=== PATIENT | female | born 1955 | race Caucasian/White ===

== ENCOUNTER 2019-08-12 14:35 | Outpatient (RCR) | payer MEDICARE, SELFPAY | END 2019-08-29 23:59 | disposition home or self-care (01) | LOC: SPT 14:35 | PROVIDERS: Family Provider Family Medicine; PCP Family Medicine; Referring Provider Specialist; Visit Provider Specialist | DX: R42 Dizziness and giddiness (principal) | CPT/HCPCS: 95992; 97162 ==

== ENCOUNTER → 2019-08-26 13:18 | Outpatient (BNVA) | payer MEDICARE, SELFPAY | PROVIDERS: Family Provider Family Medicine; PCP Family Medicine; Visit Provider Family Medicine | DX: I10 Essential (primary) hypertension (principal); E03.9 Hypothyroidism, unspecified; J43.1 Panlobular emphysema; L91.8 Other hypertrophic disorders of the skin | CPT/HCPCS: 80053; 80061; 82044; 84443; 85025 ==

== ENCOUNTER 2019-08-30 06:00 | Outpatient (RCR) | payer MEDICARE, SELFPAY | END 2019-09-27 23:59 | disposition home or self-care (01) | LOC: SPT 06:00 | PROVIDERS: Family Provider Family Medicine; PCP Family Medicine; Referring Provider Specialist; Visit Provider Specialist | DX: Z01.89 Encounter for other specified special examinations (principal) ==

== ENCOUNTER → 2020-02-27 11:43 | Outpatient (BNVA) | payer MEDICARE, SELFPAY | PROVIDERS: Family Provider Family Medicine; PCP Family Medicine; Visit Provider Family Medicine | DX: E03.9 Hypothyroidism, unspecified (principal); I10 Essential (primary) hypertension | CPT/HCPCS: 80053; 84443 ==

== ENCOUNTER 2020-05-25 14:11 | Outpatient (CLI) | payer MEDICARE, SELFPAY ==
--- NOTE | 2020-05-25 14:30 | MM_ITS ---
WS: [id number] SCREENING DIGITAL MAMMOGRAM WITH CAD HISTORY: screening mammogram COMPARISON: 04/28/2019 and 04/26/2018 Bilateral CC and MLO views submitted. Computer aided detection analyzed. Breast composition: There are scattered areas of fibroglandular density. There is a new cluster of ca lcifications in the LEFT breast at a middle depth just medial to the nipple line at 9:00. Some of the se calcifications are within a linear distribution. MM/[place] [id number] IMPRESSION: BI-RADS: 0-Incomplete: Need additional imaging evaluation FOLLOW UP: Need Additional Imaging LEFT BREAST: Magnification views of suspicious calcification CC and MLO. Abhay Dubon
== END 2020-05-25 14:12 | disposition home or self-care (01) ==
LOC: RADSHAW 14:15
PROVIDERS: PCP Family Medicine; Visit Provider Family Medicine
DX: Z12.31 Encounter for screening mammogram for malignant neoplasm of breast (principal); R92.1 Mammographic calcification found on diagnostic imaging of breast
CPT/HCPCS: 77067

== ENCOUNTER 2020-06-09 10:33 | Outpatient (CLI) | payer MEDICARE, SELFPAY ==
--- NOTE | 2020-06-09 11:00 | MM_ITS ---
WS: [id number] Left breast diagnostic digital mammogram, 06/09/2020 Clinical Data: suspicious calcifications Comparison: 05/25/2020, 04/28/2019, 04/26/2018, 03/28/2017, 11/03/2014, 01/16/2011, 09/22/2009, 03/04/2009, 01/30/2008, 05/06/2007. Findings: The compression CC and MLO views in the ML view of the left breast show an area of small calcificatio ns. There is no associated mass. These calcifications were not present on older mammograms. There are no secondary signs of carcinoma. MM/[place] [id number] Impression: 1. Suspicious calcifications in left breast at 9:00 position. 2. Recommend left breast ultrasound. BIRADS: 4-Suspicious Finding-Biopsy Should Be Considered FOLLOW UP: See Report The CAD abstract checker was used.
--- NOTE | 2020-06-09 11:30 | US_ITS ---
WS: [id number] Left breast ultrasound, 06/09/2020 Clinical Data: abnormal mammogram, left breast Comparison: None. Findings: Images of the left breast 5 cm from the nipple at the 9:00 position revealed no masses. There are no cysts. There was no acoustic shadowing. US/US breast LT limited* [id number] Impression: 1. Negative left breast ultrasound. 2. Suggest biopsy of new calcifications. BIRADS: 4-Suspicious Finding-Biopsy Should Be Considered FOLLOW UP: See Report
== END 2020-06-09 10:34 | disposition home or self-care (01) ==
LOC: RADSHAW 10:36
PROVIDERS: PCP Family Medicine; Visit Provider Family Medicine
DX: R92.1 Mammographic calcification found on diagnostic imaging of breast (principal)
CPT/HCPCS: 76642; 77065

== ENCOUNTER → 2020-06-16 15:44 | Outpatient (BNVA) | payer MEDICARE, SELFPAY | PROVIDERS: PCP Family Medicine; Visit Provider Family Medicine | DX: Z20.828 Contact with and (suspected) exposure to other viral communicable diseases (principal); R50.9 Fever, unspecified | CPT/HCPCS: 87635 ==

== ENCOUNTER 2020-07-15 11:30 | Outpatient (CLI) | payer MEDICARE, SELFPAY ==
--- NOTE | 2020-07-15 11:40 | MM_ITS ---
WS: [id number] STEREOTACTIC LEFT BREAST BIOPSY WITH VACUUM ASSISTANCE HISTORY: abnormal mammo. COMPARISON: 06/09/2020, 04/28/2019 Procedure, risks and complications were explained to the patient. Medications and prior radiographs a re reviewed. LEFT breast calcifications are located. There is a linear area of calcification extending over severa l centimeters. The more anterior in the more posterior aspect will be biopsied to ensure adequate scot pling. This is the same contiguous collection of calcifications along a duct. Calcifications are targ eted in the craniocaudal projection. The skin is cleansed with ChloraPrep and anesthetized with 1% bu ffered lidocaine. Deeper soft tissues anesthetized with a combination of lidocaine and epinephrine. S mall dermatome is made. Needle advanced into the breast. Stereotactic imaging reveals appropriate pos itioning adjacent calcifications. Multiple vacuum-assisted core biopsies are obtained. No complicatio ns were encountered. Dictated biopsies are performed of the anterior and posterior calcifications. No complications. There are calcifications in each biopsy. Post biopsy specimen radiograph reveals numerous calcifications. Biopsy clip is placed in each biopsy cavity. Post imaging reveals good placement of the clips. No april ration. Pressures held for approximately 15 minutes. No bleeding. Dressing applied. Patient discharged with n o complications. There is no bleeding. With any questions or complications patient is to return. MM/[place] [id number] IMPRESSION: 1. Uncomplicated LEFT breast stereotactic biopsy. Biopsy along the anterior an d posterior distribution of the calcifications at 9:00. 2. Specimen contains numerous calcifications. Pathology: Specimen A, posterior calcifications. 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 RECOMMENDATION: Surgical and oncologic follow-up. Pathology: Specimen B, anterior calcifications. Single focus of ductal carcino ma in situ. High nuclear grade with central comedo-type necrosis. Surrounding b reast tissue with atypical intraductal hyperplasia. RECOMMENDATION: Surgical and oncologic follow-up.
[2020-07-15 12:18] LABS: INR 0.97 (0.8-1.2)
--- NOTE | 2020-07-15 13:00 | MM_ITS ---
WS: [id number] STEREOTACTIC LEFT BREAST BIOPSY WITH VACUUM ASSISTANCE HISTORY: abnormal mammo. COMPARISON: 06/09/2020, 04/28/2019 Procedure, risks and complications were explained to the patient. Medications and prior radiographs a re reviewed. LEFT breast calcifications are located. There is a linear area of calcification extending over severa l centimeters. The more anterior in the more posterior aspect will be biopsied to ensure adequate scot pling. This is the same contiguous collection of calcifications along a duct. Calcifications are targ eted in the craniocaudal projection. The skin is cleansed with ChloraPrep and anesthetized with 1% bu ffered lidocaine. Deeper soft tissues anesthetized with a combination of lidocaine and epinephrine. S mall dermatome is made. Needle advanced into the breast. Stereotactic imaging reveals appropriate pos itioning adjacent calcifications. Multiple vacuum-assisted core biopsies are obtained. No complicatio ns were encountered. Dictated biopsies are performed of the anterior and posterior calcifications. No complications. There are calcifications in each biopsy. Post biopsy specimen radiograph reveals numerous calcifications. Biopsy clip is placed in each biopsy cavity. Post imaging reveals good placement of the clips. No april ration. Pressures held for approximately 15 minutes. No bleeding. Dressing applied. Patient discharged with n o complications. There is no bleeding. With any questions or complications patient is to return. MM/MM biopsy [place] vac assist [id number] IMPRESSION: 1. Uncomplicated LEFT breast stereotactic biopsy. Biopsy along the anterior an d posterior distribution of the calcifications at 9:00. 2. Specimen contains numerous calcifications. Pathology: Specimen A, posterior calcifications. 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 RECOMMENDATION: Surgical and oncologic follow-up. Pathology: Specimen B, anterior calcifications. Single focus of ductal carcino ma in situ. High nuclear grade with central comedo-type necrosis. Surrounding b reast tissue with atypical intraductal hyperplasia. RECOMMENDATION: Surgical and oncologic follow-up.
[2020-07-28 09:34] LABS: Miscellaneous Test See Scanned Lab Rpt
== END 2020-07-15 11:31 | disposition home or self-care (01) ==
LOC: RADSHAW 11:33
PROVIDERS: PCP Family Medicine; Visit Provider Family Medicine
DX: R92.8 Other abnormal and inconclusive findings on diagnostic imaging of breast (principal); Z01.818 Encounter for other preprocedural examination; D05.12 Intraductal carcinoma in situ of left breast; R92.1 Mammographic calcification found on diagnostic imaging of breast
CPT/HCPCS: 19081; 19082; 77065; 85610; 88305; 88361; 88374

== ENCOUNTER 2020-07-28 09:19 | Outpatient (CLI) | payer MEDICARE, SELFPAY ==
--- NOTE | 2020-07-28 14:38 | ONC CON_ITS ---
Dr. Wagner New Patient Note Patient: Kerri Menchaca Unit #: [id number]: [id number] Dicatated By: Drake Wagner M.D.Date of Visit: Jul 28, 2020 Onc MED New Patient/Consult Referring Physician: Dr. GLORIA VERMA D.O. History of Present Illness: Ms. Kerri Menchaca, is a 64-year-old female with history of fibrocystic disease, underwent bilateral lumpectomy when she was in 20s and prior to that when she was [id number], she underwent benign tumor removal from her left breast. As per patient her routine yearly mammogram done on May 25, 2020 showed new cluster of calcifications in the left breast just medial to the nipple line at 9 o'clock position, subsequently underwent left breast digital mammogram on June 09, 2020 which confirmed suspicious calcification in the left breast at 9 o'clock position, subsequently she developed fever and generalized weakness and fatigue underwent Covid 19 testing which came back positive, as per patient her symptoms and condition improved just with supportive care. On July 15, 2020 she underwent stereotactic left breast biopsy and final pathology report came back ductal carcinoma site to with a focus of microinvasive carcinoma which was less than a millimeter in the greatest dimension and is present on the edge of the resection. Patient denies any nipple discharge, denies any overlying skin changes denies any left axillary lymphadenopathy, denies any bony pains, denies any new left breast mass but she has, as per patient lumpy breasts. Denies any new bony pains denies any weight loss, denies any fever chills denies any melena or hematochezia, patient is a former smoker quit smoking in 2002. Past Medical History: Ms. Menchaca's medical history consists of anxiety, bipolar disorder, chronic obstructive pulmonary disease, gastroesophageal reflux disease, hypertension, hypothyroidism, obstructive sleep apnea, and post traumatic stress disorder. Past Surgical History: Ms. Molina surgical/procedural history consists of ankle repair, appendectomy, breast biopsy, cholecystectomy, hysterectomy, shoulder surgery, subtotal thyroidectomy, and tonsillectomy. Medications: Abilify 1 Tablet (of 15 mg) Oral daily, B Complex 1 Tablet Oral daily, buPROPion HCl ER (XL) 1 Tablet (of 300 mg) Tablet SR 24 HR Oral daily, [facility] Fish Oil 1 Capsule (of 1200 mg) Oral daily, Daily Multiple Vitamins 1 Tablet Oral daily, DULoxetine HCl 2 Capsule (of 60 mg) Capsule Delayed Release Particles Oral daily, lamoTRIgine 1 Tablet (of 200 mg) Oral daily, Levothyroxine Sodium 1 Tablet (of 100 mcg) Oral daily, Losartan Potassium 1 Tablet (of 25 mg) Oral daily, Omeprazole 1 Tablet (of 20 mg) Tablet, enteric coated Oral daily, Symbicort 2 Puff(s) (of 80-4.5 mcg/act) Aerosol Inhalation daily Allergies: Codeine Sulfate and iodine. Social History: Ms. Menchaca is . Ms. Menchaca no longer smokes. She is a former drinker. Family History: There is no documented family history. Review Of Symptoms: Constitutional - Appetite is good and weight is stable. No fever, night sweats, or hot flashes. Energy level is fair, ENMT - No sinus congestion/drainage. No mouth sores. No sore throat or difficulty swallowing, Hematologic/Lymphatic - No abnormal bruising or bleeding, Respiratory - Positive for shortness of breath. No cough. No pleuritic pain or hemoptysis, Cardiovascular - No angina pain. No palpitations, Gastrointestinal - No nausea or vomiting. No heartburn or acid reflux. No diarrhea or constipation. No blood in the stool or black stools, Genitourinary (F) - No dysuria or hematuria. No urinary frequency. No urgency or incontinence, Musculoskeletal - No joint or bone pain, Neurologic - No headache or dizziness. No numbness or tingling. No other focal neurologic symptoms, Psychiatric - Positive for anxiety, no depression. No insomnia. Pt is currently being treated for anxiety. Vital Signs: Performed on Jul 28, 2020 10:47: 0, 37.83 (HIGH), 2.04 sq.m, 64 in, 96 %, 79 /min, 16 /min, 168/80 mm(hg) (HIGH), 98.6 F, and 220.4 lbs (HIGH). Performance Status: 0 - Fully active, able to carry on all predisease activities without restrictions. (ECOG) Physical Examination: ENMT - denies any mouth sores or thrush or jaundice, Respiratory - Denies any shortness of breath or wheezing, Cardiovascular - Denies any tachycardia or palpitation, Abdomen - Denies any abdominal pain or fullness, Extremities - No visible edema or rash. Lab/Imaging: Most recent lab results are not available for this patient. Impression: Ductal carcinoma in situ with microinvasive carcinoma which was seen on the edge of the section, but stereotactic left breast biopsy done on July 15, 2020 Prognostic profiling showed ER 99% NH 99% positive, HER-2/fausto negative History of bilateral breast lumpectomy when she was in her 20s and history of left breast benign tumor removal at age 16 Plan: Discussed with patient regarding her disease status and left breast biopsy report, patient is already scheduled see Dr. Medina in 1 week for further surgical evaluation, , Patient will discuss with him regarding surgical options including lumpectomy followed by radiation therapy versus simple mastectomy, we will see her back after surgery , for further evaluation and discussion regarding treatment options. As if it shows DCIS only, then will consider hormonal therapy for 5 years or if it shows invasive tumor, then will consider Oncotype DX Signed By: Drake Wagner M.D. <<Signature on File>>
== END 2020-07-28 09:20 | disposition home or self-care (01) ==
LOC: ONCMED 09:21
PROVIDERS: PCP Family Medicine; Visit Provider Internal Medicine Hematology & Oncology
DX: C50.812 Malignant neoplasm of overlapping sites of left female breast (principal); Z17.0 Estrogen receptor positive status [ER+]
CPT/HCPCS: 99203

== ENCOUNTER 2020-08-17 07:04 | Day surgery (SDC) | payer MEDICARE, SELFPAY ==
[2020-08-16 15:38] VITALS: BMI 37.8
[2020-08-17] VITALS (10 sets, daily range): BP systolic 125–142; BP diastolic 77–89; PULSE 72–91; RESP 12–20; TEMP 36.3–36.7; O2SAT 93–99
--- NOTE | 2020-08-17 07:27 | MM_ITS ---
WS: [id number] STEREOTACTIC LEFT BREAST NEEDLE LOCALIZATION HISTORY: INTRADUCTAL CARCINOMA IN SITU LEFT BREAST COMPARISON: 07/15/2020 Procedure, risks and complications are explained to the patient. Consent has been obtained. Localization of calcifications is done with stereotactic technique. Calcifications are bracketed with 2 localization wires. Skin is cleansed with ChloraPrep and anesthetized with 1% buffered lidocaine. Kopans needle is inserted to the level of the calcifications. [place] are advanced 1.0 cm beyond the calcifications. Calcifications are localized with bracketing wires. Postprocedure the wire extends 1.0 cm calcificati ons. Wires are secured and the patient is sent to the OR with no complications. SPECIMEN RADIOGRAPH: Specimen radiograph contains the calcifications and the localization wires. Calc ifications extend to the margin of the specimen. This was discussed with Dr. Medina. MM/MM surgical specimen LT IMPRESSION: 1. Uncomplicated wire localization of calcifications LEFT breast. PATHOLOGY: Invasive ductal carcinoma and ductal carcinoma in situ. RECOMMENDATION: Follow-up with breast surgeon and oncology.
--- NOTE | 2020-08-17 07:27 | MM_ITS ---
WS: [id number] STEREOTACTIC LEFT BREAST NEEDLE LOCALIZATION HISTORY: INTRADUCTAL CARCINOMA IN SITU LEFT BREAST COMPARISON: 07/15/2020 Procedure, risks and complications are explained to the patient. Consent has been obtained. Localization of calcifications is done with stereotactic technique. Calcifications are bracketed with 2 localization wires. Skin is cleansed with ChloraPrep and anesthetized with 1% buffered lidocaine. Kopans needle is inserted to the level of the calcifications. [place] are advanced 1.0 cm beyond the calcifications. Calcifications are localized with bracketing wires. Postprocedure the wire extends 1.0 cm calcificati ons. Wires are secured and the patient is sent to the OR with no complications. SPECIMEN RADIOGRAPH: Specimen radiograph contains the calcifications and the localization wires. Calc ifications extend to the margin of the specimen. This was discussed with Dr. Medina. MM/[place] [id number] IMPRESSION: 1. Uncomplicated wire localization of calcifications LEFT breast. PATHOLOGY: Invasive ductal carcinoma and ductal carcinoma in situ. RECOMMENDATION: Follow-up with breast surgeon and oncology.
--- NOTE | 2020-08-17 09:32 | ANES.PREANE2 ---
Pre-Anesthetic Assessment Pre-Anesthetic Assessment: Height/Weight: Height 1.63 m Weight 99.79 kg Preop Diagnosis: DCIS left breast(Ductal carcinoma in situ) Proposed Procedure: Operation Date: 08/17/20 10:40 Proposed Procedures p Breast Biopsy Needle Localization [id number] D05.12(Left) - Gilmer Medina MD s left breast lumpectomy(Left) - Gilmer Medina MD Familial anesthetic complications: None Was Beta Salas taken within 24 hours: N/A Last intake: NPO > 8 hrs Social: Social History: No alcohol and No tobacco Exam: Pre-Anes Outpt Exam: alert, oriented x 3, clear to auscultation bilaterally and regular rate & rhythm Airway: Cervical ROM: WNL MP: 4 Dentition: Full Additional comments: very small mouth opening Pulmonary: Pulmonary: COPD and Sleep apnea (cpap) CV/HEM: CV/HEM: HTN GI: GI: GERD and Hiatus hernia Metabolic: Metabolic: Morbid obesity and Thyroid Anesthetic Plan: ASA status: 3 Anesthesia: General Risk of > 500 ml blood loss (7ml/kg in children): No PFSH Anesthesia PFSH: Medical History Bipolar II disorder COPD (chronic obstructive pulmonary disease) Essential hypertension Generalized anxiety disorder GERD (gastroesophageal reflux disease) Hypothyroid ALANNA (obstructive sleep apnea) Post-traumatic stress disorder, chronic Surgical History H/O: hysterectomy History of ankle surgery S/P appendectomy S/P breast biopsy S/P cholecystectomy S/P shoulder surgery S/P subtotal thyroidectomy S/P tonsillectomy and adenoidectomy Family History Other CAD (coronary artery disease) Cancer Hypertension Lung disease Psychiatric illness Social History Smoking and tobacco status: former smoker Alcohol intake: former Former alcohol use details: 12 PACK OF BEER PER DAY AND 8-10 SHOTS OF WHISKEY DAILY Lives independently: Yes Female Reproductive History: Para: 0 Spontaneous abortions: Yes Data Anesthesia Cardiac Studies: No Data to Display
--- NOTE | 2020-08-17 09:42 | W.PM.OPSUD ---
Surgery/Procedure H&P Update DATE OF PROCEDURE: August 17, 2020 DATE H&P PERFORMED: 08/02/20 H&P UPDATE INFORMATION: I have reviewed H&P completed within last 30 days, I have examined patient prior to procedure and No changes to prior documentation PREOP DIAGNOSIS: DCIS left breast(Ductal carcinoma in situ) PRIMARY INDICATION FOR PROCEDURE: The same PLANNED PROCEDURE: Operation Date: 08/17/20 10:40 Proposed Procedures p Breast Biopsy Needle Localization [id number] D05.12(Left) - Gilmer Medina MD s left breast lumpectomy(Left) - Gilmer Medina MD
[2020-08-17] MEDS: sodium chloride 0.9% 1,000 ML 30 ML IV (09:45)
[2020-08-17] MEDS: lidocaine 2% INJ 20 mL INJECTION (10:18)
--- NOTE | 2020-08-17 11:23 | P.OP_ITS ---
Operative Report Date of procedure: August 17, 2020 Pre-op Diagnosis: DCIS left breast(Ductal carcinoma in situ) Post-op diagnosis: same Post-op Findings: Needle localization Procedure Done: Partial mastectomy with needle localization Implants: Medium and small sized clips orienting the bed of the calcifications Specimens removed/disposition: specimen left partial mastectomy wires oriented anterior and short sutures superior and long sutures lateral Additional inferior margin was sent with blue ink marked away from the tumor bed Surgeon: Gilmer Medina Set Off Blocker: Renata Rodriguez Circulating nurses Ifrah Dennis and Caelb George Anesthesia: General (vegetable cook Levi and Janice) Estimated blood loss (mL): 10 Condition: stable Disposition: same day Brief History: This is a pleasant 65 years old female patient with well known DCIS component based on a previous breast biopsy and patient was referred to me for further evaluation for lumpectomy, to further counseling the patient reviewed the images I did marriage and family counselor her for lumpectomy with needle localization and patient agreed to proceed accordingly. Informed consent per chart Procedure: After patient undergone a needle localization at Radiology Department hardcopies of the mammography were sent with the patient to the holding area. After identifying the patient holding area, the left breast was marked before the procedure by myself, patient was then taken to the operative suite, was placed in supine position, intubated by anesthesia using LMA, prophylactic IV antibiotics were given per protocol, left arm was placed in 90? to her body, I was able to take down the tape and dressing on top of the wire without jeopardizing it ,prep and drape of the left pectoralis region was done under the usual sterile technique. Time-out was done verifying the patient's name/date of /planned procedure and destination after the procedure, all were in agreement. After identifying the direction of the wire on the x-rays I did perform a transverse incision at the site of entrance of both needles used for the localization , dissection was carried on using electrocautery. The localization wires were grasped and pulled into the incision and dissection continued towards the tip of the wire and beyond. The breast tissue containing mammographic abnormality was grasped with Allis forceps and using electrocautery the specimen was dissected free from the surrounding tissue.good margin of normal breast tissue surrounding the mass and the nodule, and and the specimen(left partial mastectomy) was taken out and passed to the circulating nurse to send for x-ray and pathology. Specimen was oriented with short suture superior and long suture left lateral and the both wires previously placed at the radiology department where anteriorly located Later we got the clearance from radiology department that the mammographic abnormality was all included in the specimen, yet some of the calcifications extending to one of the margin, and cannot entirely rule out potential more ti ssues being involved, so I had to take more tissue in the form of a shave biopsy particularly the inferior portion where I could appreciate clinical condensation of breast tissues and that margin was inked with blue were the inking was at the surface away from the pathological findings. At that point I decided to send that additional inferior margin to pathology Copious and thorough irrigation of the cavity was done and hemostasis, followed by application of medium and small size clips at the margins of the entire cavity for future reference, followed by deep dermal closure by 2-0 Vicryl, fo llowed by 3-0 Vicryl then 4-0 Monocryl for skin closure followed by Mastisol and Steri-Strips. Lidocaine 2% was injected at the site of the incision Pressure dressing was applied followed by fluffs and a sports bra Patient tolerated the procedure well, count of instruments, needles and sponges were completed at the end of the procedure.And then patient was taken to the recovery area in stable condition. I was present for the whole entire procedure
--- NOTE | 2020-08-17 14:17 | ANE.PACU2 ---
Inpatient post-anesthesia follow up: Airway intact: Yes Vital signs: Temperature 98.1 F Pulse Rate 76 Respiratory Rate 18 Blood Pressure 138/81 Pulse Oximetry 96 Oxygen Delivery Me thod Room Air Oxygen Flow Rate 2 Fraction of Inspir ed Oxygen Hydration adequate: Yes Nausea and vomiting: No Pain level: 1 Mental status: Baseline
== END 2020-08-17 13:18 | disposition home or self-care (01) ==
PROVIDERS: PCP Family Medicine; Visit Provider Surgery
PROC: (CPT 19301; principal; 2020-08-17 10:30)
PROC: (CPT 19301; 2020-08-17 10:30)
DX: D05.12 Intraductal carcinoma in situ of left breast (principal); Z79.82 Long term (current) use of aspirin; J44.9 Chronic obstructive pulmonary disease, unspecified; I10 Essential (primary) hypertension; F41.9 Anxiety disorder, unspecified; K21.9 Gastro-esophageal reflux disease without esophagitis; E03.9 Hypothyroidism, unspecified; G47.33 Obstructive sleep apnea (adult) (pediatric); Z87.891 Personal history of nicotine dependence; E66.01 Morbid (severe) obesity due to excess calories; Z68.37 Body mass index [BMI] 37.0-37.9, adult
CPT/HCPCS: 19301; 12345; 19283; 88305; 96365; C1889; J0131; J0690; J1100; J2405; J3010; J7030

== ENCOUNTER 2020-08-26 10:23 | Outpatient (CLI) | payer MEDICARE, SELFPAY ==
[2020-08-26 11:17] LABS: Basophils % 0.4 %; Eosinophils # 0.2 10^3/uL (0.0-0.8); Eosinophils % 1.7 %; Hematocrit 38.6 % (37.0-47.0); Hemoglobin 12.3 g/dL (11.5-15.3); Lymphocytes # 2.8 10^3/uL (0.8-4.8); Lymphocytes % 26.9 %; Mean Corpuscular HGB Conc 31.9 g/dL (30.0-36.0); Mean Corpuscular Hemoglobin 29.5 pg (28.0-34.0); Mean Corpuscular Volume 92.6 fL (81-99); Mean Platelet Volume 10.7 fL (7.4-10.4); Monocytes # 0.7 10^3/uL (0.2-0.9); Monocytes % 6.6 %; Neutrophils # 6.64 10^3/uL (1.8-7.7); Neutrophils % 63.7 %; Nucleated Red Blood Cells % 0 %; Platelet Count 367 10^3/cmm (130-400); Red Blood Count 4.17 10^6/uL (4.1-5.3); Red Cell Distribution Width 14.1 % (12.1-15.1); White Blood Count 10.4 10^3/uL (4.0-10.0)
[2020-08-26 11:56] LABS: Alanine Aminotransferase 16 U/L (0-33); Albumin Level 4.1 g/dL (3.5-5.2); Alkaline Phosphatase 101 IU/L (35-105); Aspartate Amino Transferase 13 U/L (0-32); Blood Urea Nitrogen 10 mg/dL (8-23); Calcium 9.8 mg/dL (8.5-10.5); Carbon Dioxide 27 mmol/L (22-29); Chloride 101 mmol/L (98-107); Globulin 3.1 g/dL (1.3-4.6); Glomerular Filtration Rate 71.8 mL/min (90-130); Glucose 141 mg/dL (65-115); Osmolality Calculated 287 mOsm/kg (285-295); Sodium 138 mmol/L (136-145); Total Bilirubin 0.2 mg/dL (0.15-1.2); Total Protein 7.2 g/dL (6.6-8.7)
== END 2020-08-26 10:24 | disposition home or self-care (01) ==
LOC: ONCMED 10:25
PROVIDERS: PCP Family Medicine; Visit Provider Internal Medicine Hematology & Oncology
DX: D05.12 Intraductal carcinoma in situ of left breast (principal); E03.9 Hypothyroidism, unspecified; I10 Essential (primary) hypertension; F43.12 Post-traumatic stress disorder, chronic; F31.81 Bipolar II disorder; F41.1 Generalized anxiety disorder
CPT/HCPCS: 36415; 80053; 85025

== ENCOUNTER 2020-08-30 05:35 | Outpatient (CLI) | payer MEDICARE, SELFPAY ==
--- NOTE | 2020-08-31 16:36 | ONC FU_ITS ---
Dr. Wagner follow up note Patient: Kerri Menchaca Unit #: [id number]: 1955 Dicatated By: Drake Wagner M.D.Date of Visit:Aug 30, 2020 Onc Med Follow-up/Prog Note History of Present Illness: Ms. Kerri Menchaca, is a 64-year-old female with history of fibrocystic disease, underwent bilateral lumpectomy when she was in 20s and prior to that when she was [id number], she underwent benign tumor removal from her left breast. As per patient her routine yearly mammogram done on May 25, 2020 showed new cluster of calcifications in the left breast just medial to the nipple line at 9 o'clock position, subsequently underwent left breast digital mammogram on June 09, 2020 which confirmed suspicious calcification in the left breast at 9 o'clock position, subsequently she developed fever and generalized weakness and fatigue underwent Covid 19 testing which came back positive, as per patient her symptoms and condition improved just with supportive care. On July 15, 2020 she underwent stereotactic left breast biopsy and final pathology report came back ductal carcinoma site to with a focus of microinvasive carcinoma which was less than a millimeter in the greatest dimension and is present on the edge of the resection. Patient denies any nipple discharge, denies any overlying skin changes denies any left axillary lymphadenopathy, denies any bony pains, denies any new left breast mass but she has, as per patient lumpy breasts. Denies any new bony pains denies any weight loss, denies any fever chills denies any melena or hematochezia, patient is a former smoker quit smoking in 2002. 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 Medications: Abilify 1 Tablet (of 15 mg) Oral daily, B Complex 1 Tablet Oral daily, buPROPion HCl ER (XL) 1 Tablet (of 300 mg) Tablet SR 24 HR Oral daily, [facility] Fish Oil 1 Capsule (of 1200 mg) Oral daily, Daily Multiple Vitamins 1 Tablet Oral daily, DULoxetine HCl 2 Capsule (of 60 mg) Capsule Delayed Release Particles Oral daily, lamoTRIgine 1 Tablet (of 200 mg) Oral daily, Levothyroxine Sodium 1 Tablet (of 100 mcg) Oral daily, Losartan Potassium 1 Tablet (of 25 mg) Oral daily, Omeprazole 1 Tablet (of 20 mg) Tablet, enteric coated Oral daily, Symbicort 2 Puff(s) (of 80-4.5 mcg/act) Aerosol Inhalation daily Allergies: Codeine Sulfate and iodine. Review of Systems: Constitutional - Appetite is good and weight is stable. No fever, night sweats, or hot flashes. Energy level is fair, ENMT - No sinus congestion/drainage. No mouth sores. No sore throat or difficulty swallowing, Hematologic/Lymphatic - No abnormal bruising or bleeding, Respiratory - Positive for shortness of breath. No cough. No pleuritic pain or hemoptysis, Cardiovascular - No angina pain. No palpitations, Gastrointestinal - No nausea or vomiting. No heartburn or acid reflux. No diarrhea or constipation. No blood in the stool or black stools, Genitourinary (F) - No dysuria or hematuria. No urinary frequency. No urgency or incontinence, Musculoskeletal - No joint or bone pain, Neurologic - No headache or dizziness. No numbness or tingling. No other focal neurologic symptoms, Psychiatric - Positive for anxiety, no depression. No insomnia. Pt is currently being treated for anxiety. Vital Signs: Performed on Aug 30, 2020 08:06 Height - 64.00 in Weight - 221.4 lbs (HIGH) BSA - 2.04 sq.m BMI - 38.00 (HIGH) Temperature - 98.5 F Pulse - 78 /min Respiration - 18 /min BP - 152/87 mm(hg) (HIGH) O2 Sat - 95 % (LOW) Pain - 0 Fatigue - 0 Performance Status: 0 - Fully active, able to carry on all predisease activities without restrictions. (ECOG) Physical Examination: Respiratory - Lungs are clear to auscultation, Cardiovascular - Regular rate and rhythm of heart, Gastrointestinal - Soft, bowel sounds present, Extremities - No visible edema or rash. Lab/Imaging: Most recent lab results are not available for this patient. Impression: Ductal carcinoma in situ with microinvasive carcinoma which was seen on the edge of the section, but stereotactic left breast biopsy done on July 15, 2020, Subsequently underwent left breast lumpectomy on August 17, 2020 which shows invasive ductal carcinoma (2 mm focus) along with ductal carcinoma in situ with cribriform and comedo necrosis grade 3 or margins were clear in specimen A except in specimen B where only inferior margin was positive with DCIS, p T1 a, NX, p Stage IA Prognostic profiling showed ER 99% AR 99% positive, HER-2/fausto negative, Started on Arimidex 1 mg along with vitamin D and calcium supplement on August 30, 2020 History of bilateral breast lumpectomy when she was in her 20s and history of left breast benign tumor removal at age 16 Plan: Discussed with patient regarding her labs white blood count 10.4 hemoglobin 12.3 hematocrit 38.6 platelets 367,000 CMP within normal limits and her final pathology report findings which shows 2 mm invasive focus in DCIS and only inferior margin was positive with a DCIS, case was discussed with Dr. Beltran radiation oncology who recommended reexcision of inferior margin thus discussed with Dr. Medina, who will consider reexcision in the meantime , Being with early stage, ER/AR positive, we will start her on adjuvant hormone therapy with Arimidex 1 mg p.o. daily along with vitamin D and calcium for 5 years all the side effects possible benefits associated with adjuvant hormone therapy including but not limited to hot flashes, mood swings, bone demineralization, musculoskeletal discomfort were mentioned further teaching will be done by chemotherapy nurse. also refer her to radiation oncology for evaluation For postlumpectomy radiation therapy and surgery for reexcision of inferior margin with DCIS Prior to the radiation therapy Patient return to clinic in 1 month Signed By: Drake Wagner M.D. <<Signature on File>>
== END 2020-08-30 05:36 | disposition home or self-care (01) ==
LOC: ONCMED 05:37
PROVIDERS: PCP Family Medicine; Visit Provider Internal Medicine Hematology & Oncology
DX: C50.812 Malignant neoplasm of overlapping sites of left female breast (principal); Z17.0 Estrogen receptor positive status [ER+]
CPT/HCPCS: 99215

== ENCOUNTER 2020-09-29 12:39 | Outpatient (CLI) | payer MEDICARE, SELFPAY ==
[2020-09-29 13:12] LABS: Basophils % 0.4 %; Eosinophils # 0.2 10^3/uL (0.0-0.8); Eosinophils % 1.7 %; Hematocrit 38.6 % (37.0-47.0); Hemoglobin 12.6 g/dL (11.5-15.3); Lymphocytes # 3.7 10^3/uL (0.8-4.8); Lymphocytes % 36.4 %; Mean Corpuscular HGB Conc 32.6 g/dL (30.0-36.0); Mean Corpuscular Hemoglobin 30.1 pg (28.0-34.0); Mean Corpuscular Volume 92.1 fL (81-99); Mean Platelet Volume 10.9 fL (7.4-10.4); Monocytes # 0.8 10^3/uL (0.2-0.9); Monocytes % 7.4 %; Neutrophils % 52.7 %; Nucleated Red Blood Cells % 0 %; Platelet Count 346 10^3/cmm (130-400); Red Blood Count 4.19 10^6/uL (4.1-5.3); Red Cell Distribution Width 13.9 % (12.1-15.1); White Blood Count 10.1 10^3/uL (4.0-10.0)
[2020-09-29 14:42] LABS: Alanine Aminotransferase 17 U/L (0-33); Albumin Level 4.3 g/dL (3.5-5.2); Alkaline Phosphatase 97 IU/L (35-105); Anion Gap 14.1 (5-19); Aspartate Amino Transferase 13 U/L (0-32); Blood Urea Nitrogen 8 mg/dL (8-23); Carbon Dioxide 28 mmol/L (22-29); Chloride 102 mmol/L (98-107); Globulin 2.8 g/dL (1.3-4.6); Glomerular Filtration Rate 71.8 mL/min (90-130); Glucose 96 mg/dL (65-115); Osmolality Calculated 288 mOsm/kg (285-295); Potassium 4.1 mmol/L (3.5-5.1); Sodium 140 mmol/L (136-145); Total Bilirubin 0.2 mg/dL (0.15-1.2); Total Protein 7.1 g/dL (6.6-8.7)
--- NOTE | 2020-09-29 15:16 | ONC FU_ITS ---
Dr. Wagner follow up note Patient: Kerri Menchaca Unit #: [id number]: 1955 Dicatated By: Drake Wagner M.D.Date of Visit:Sep 29, 2020 Onc Med Follow-up/Prog Note History of Present Illness: Ms. Kerri Menchaca, is a 65-year-old female with history of fibrocystic disease, underwent bilateral lumpectomy when she was in 20s and prior to that when she was [id number], she underwent benign tumor removal from her left breast. As per patient her routine yearly mammogram done on May 25, 2020 showed new cluster of calcifications in the left breast just medial to the nipple line at 9 o'clock position, subsequently underwent left breast digital mammogram on June 09, 2020 which confirmed suspicious calcification in the left breast at 9 o'clock position, subsequently she developed fever and generalized weakness and fatigue underwent Covid 19 testing which came back positive, as per patient her symptoms and condition improved just with supportive care. On July 15, 2020 she underwent stereotactic left breast biopsy and final pathology report came back ductal carcinoma site to with a focus of microinvasive carcinoma which was less than a millimeter in the greatest dimension and is present on the edge of the resection. Patient denies any nipple discharge, denies any overlying skin changes denies any left axillary lymphadenopathy, denies any bony pains, denies any new left breast mass but she has, as per patient lumpy breasts. Denies any new bony pains denies any weight loss, denies any fever chills denies any melena or hematochezia, patient is a former smoker quit smoking in 2002. 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 daily on August 30, 2020 Came for follow-up, denies any specific complaints, no fever chills, no nausea or vomiting, no diarrhea constipation, no night sweats, tolerating Arimidex 1 mg p.o. daily along with vitamin D and calcium supplement. Patient is waiting for reexcision of positive surgical margin and postlumpectomy radiation therapy. Medications: Abilify 1 Tablet (of 15 mg) Oral daily, Anastrozole (1 mg) Tablet Oral daily, B Complex 1 Tablet Oral daily, buPROPion HCl ER (XL) 1 Tablet (of 300 mg) Tablet SR 24 HR Oral daily, [facility] Fish Oil 1 Capsule (of 1200 mg) Oral daily, Daily Multiple Vitamins 1 Tablet Oral daily, DULoxetine HCl 2 Capsule (of 60 mg) Capsule Delayed Release Particles Oral daily, lamoTRIgine 1 Tablet (of 200 mg) Oral daily, Levothyroxine Sodium 1 Tablet (of 100 mcg) Oral daily, Losartan Potassium 1 Tablet (of 25 mg) Oral daily, Omeprazole 1 Tablet (of 20 mg) Tablet, enteric coated Oral daily, Symbicort 2 Puff(s) (of 80-4.5 mcg/act) Aerosol Inhalation daily Allergies: Codeine Sulfate and iodine. Review of Systems: Review of Systems is not available for this patient. Vital Signs: Performed on Sep 29, 2020 14:44 Height - 64.00 in Weight - 222.8 lbs (HIGH) BSA - 2.05 sq.m BMI - 38.24 (HIGH) Temperature - 97.5 F (LOW) Pulse - 78 /min Respiration - 18 /min BP - 158/83 mm(hg) (HIGH) O2 Sat - 94 % (LOW) Pain - 0 Fatigue - 8 Performance Status: 0 - Fully active, able to carry on all predisease activities without restrictions. (ECOG) Physical Examination: Respiratory - Lungs are clear to auscultation, Cardiovascular - Regular rate and rhythm of heart, Gastrointestinal - Soft, bowel sounds present, Extremities - No visible edema. Lab/Imaging: Test performed on Aug 26, 2020 10:50 Sodium 138 mmol/L Potassium 4.0 mmol/L Chloride 101 mmol/L CO2 27 mmol/L Anion Gap 14.0 BUN 10 mg/dL Creatinine 0.8 mg/dL Cr Clearance (Est) 109.67 mL/min eGFR 71.8 mL/min Glucose 141 mg/dL Osmolality - Calculated 287 mOsm/kg Calcium 9.8 mg/dL Protein, Total 7.2 g/dL Albumin 4.1 g/dL Globulin 3.1 g/dL Bilirubin, Total 0.2 mg/dL ALT (SGPT) 16 U/L AST (SGOT) 13 U/L Alkaline Phosphatase 101 IU/L WBC 10.4 10 3/uL RBC 4.17 10 6/uL HGB 12.3 g/dL HCT 38.6 % MCV 92.6 fL MCH 29.5 pg MCHC 31.9 g/dL RDW 14.1 % Platelet Count 367 10 3/cmm MPV 10.7 fL Neutrophils 6.64 10 3/uL Lymphocytes 2.8 10 3/uL Monocytes 0.7 10 3/uL Eosinophils 0.2 10 3/uL Basophils 0.0 10 3/uL Neutrophil % 63.7 % Lymphocyte % 26.9 % Monocyte % 6.6 % Eosinophil % 1.7 % Basophils % 0.4 % NRBC % 0 % Impression: Ductal carcinoma in situ with microinvasive carcinoma which was seen on the edge of the section, but stereotactic left breast biopsy done on July 15, 2020, Subsequently underwent left breast lumpectomy on August 17, 2020 which shows invasive ductal carcinoma (2 mm focus) along with ductal carcinoma in situ with cribriform and comedo necrosis grade 3 or margins were clear in specimen A except in specimen B where only inferior margin was positive with DCIS, p T1 a, NX Prognostic profiling showed ER 99% MI 99% positive, HER-2/fausto negative, Started on Arimidex 1 mg along with vitamin D and calcium supplement on August 30, 2020 History of bilateral breast lumpectomy when she was in her 20s and history of left breast benign tumor removal at age 16 Plan: Discussed with patient regarding her labs white blood count 10.1 hemoglobin 12.6 hematocrit 38.6 platelets 346,000 Clinically, patient doing well with no new signs symptoms tolerating her adjuvant therapy with Arimidex 1 mg p.o. daily along with vitamin D and calcium supplements. Patient was referred to radiation oncology for postlumpectomy radiation therapy, her postlumpectomy specimen shows positive margin, now awaiting reexcision. In the meantime she will continue with Arimidex, for 5 years and she will return to clinic in 3 months with CBC CMP Signed By: Drake Wagner M.D. <<Signature on File>>
== END 2020-09-29 12:40 | disposition home or self-care (01) ==
LOC: ONCMED 12:41
PROVIDERS: PCP Family Medicine; Visit Provider Internal Medicine Hematology & Oncology
DX: C50.812 Malignant neoplasm of overlapping sites of left female breast (principal); Z17.0 Estrogen receptor positive status [ER+]; Z79.811 Long term (current) use of aromatase inhibitors
CPT/HCPCS: 36415; 80053; 85025; 99214

== ENCOUNTER → 2020-09-30 10:44 | Outpatient (BNVA) | payer MEDICARE, SELFPAY | PROVIDERS: PCP Family Medicine; Visit Provider Surgery | DX: D05.12 Intraductal carcinoma in situ of left breast (principal); Z20.822 Contact with and (suspected) exposure to COVID-19 | CPT/HCPCS: 87635 ==

== ENCOUNTER 2020-10-04 09:07 | Day surgery (SDC) | payer MEDICARE, SELFPAY ==
[2020-10-01 08:22] VITALS: BMI 37.9
[2020-10-04 09:30] VITALS: BP 113/84; PULSE 68; RESP 18; TEMP 36.8; O2SAT 96
[2020-10-04] MEDS: sodium chloride 0.9% 1,000 ML 30 ML IV (09:50)
--- NOTE | 2020-10-04 09:56 | ANES.PREANE2 ---
Pre-Anesthetic Assessment Pre-Anesthetic Assessment: Height/Weight: Height 1.63 m Weight 100.244 kg Temp Pulse Resp BP Pulse Ox 98.2 F 68 18 113/84 96 10/04/20 09:30 10/04/20 09:30 10/04/20 09:30 10/04/20 09:30 10/04/20 09:30 Preop Diagnosis: Left breast cancer Proposed Procedure: Operation Date: 10/04/20 10:40 Proposed Procedures p Rexcision of left breast lump 49041 D05.12(Left) - Gilmer Medina MD Was Beta Salas taken within 24 hours: N/A Social: Social History: No alcohol and No tobacco Exam: Pre-Anes Outpt Exam: alert, oriented x 3, clear to auscultation bilaterally and regular rate & rhythm Airway: Submandibular: WNL Cervical ROM: WNL MP: 2 Dentition: Full Pulmonary: Pulmonary: Sleep apnea and SOB CV/HEM: CV/HEM: HTN GI: GI: GERD Metabolic: Metabolic: Morbid obesity and Thyroid Neuropsych: Neuropsych: Anxiety Anesthetic Plan: ASA status: 3 Anesthesia: Choice Risk of > 500 ml blood loss (7ml/kg in children): No PFSH Anesthesia PFSH: Medical History Bipolar II disorder COPD (chronic obstructive pulmonary disease) Essential hypertension Generalized anxiety disorder GERD (gastroesophageal reflux disease) Hypothyroid ALANNA (obstructive sleep apnea) Post-traumatic stress disorder, chronic Surgical History H/O: hysterectomy History of ankle surgery S/P appendectomy S/P breast biopsy S/P cholecystectomy S/P shoulder surgery S/P subtotal thyroidectomy S/P tonsillectomy and adenoidectomy Family History Other CAD (coronary artery disease) Cancer Hypertension Lung disease Psychiatric illness Social History Smoking and tobacco status: former smoker Alcohol intake: former Former alcohol use details: 12 PACK OF BEER PER DAY AND 8-10 SHOTS OF WHISKEY DAILY Lives independently: Yes Female Reproductive History: Para: 0 Spontaneous abortions: Yes Data Anesthesia Cardiac Studies: No Data to Display
--- NOTE | 2020-10-04 10:43 | W.PM.OPSUD ---
Surgery/Procedure H&P Update DATE OF PROCEDURE: October 04, 2020 DATE H&P PERFORMED: 09/30/20 H&P UPDATE INFORMATION: I have reviewed H&P completed within last 30 days, I have examined patient prior to procedure and No changes to prior documentation PREOP DIAGNOSIS: Left breast cancer PRIMARY INDICATION FOR PROCEDURE: The same PLANNED PROCEDURE: Operation Date: 10/04/20 10:40 Proposed Procedures p Rexcision of left breast lump 46551 D05.12(Left) - Gilmer Medina MD
[2020-10-04] MEDS: ceFAZolin 3,000 MG in sodium chloride 0.9% (100 ml) 100 ML 200 MG IV (10:59)
--- NOTE | 2020-10-04 11:50 | PM.OP ---
Operative Report Date of procedure: October 04, 2020 Pre-op Diagnosis: Left breast cancer Post-op diagnosis: same Procedure Done: Left partial mastectomy Implants: Medium size clips circumferentially status post left partial mastectomy Specimens removed/disposition: Left partial mastectomy with short sutures marked superior and long sutures marked lateral Previous scar leticia anterior and blue ink us inferior margin Surgeon: Gilmer Medina Winch Stripper: Surgical techdyana Lainez Circulating nurses Lindsay and Anabella Anesthesia: General (LMA adventure challenge instructor Janice) Estimated blood loss (mL): 10 Condition: stable Disposition: same day Brief History: This is a pleasant 65 years old female patient with history of DCIS with involvement of inferior margin on a previous left partial mastectomy specimen.Patient was counseled for reexcision of margins and submitted for pathology to obtain clear margins for future radiation therapy. Full H&P and informed consent per chart. Procedure: After identifying the patient holding area, the left breast was marked before the procedure by myself, patient was then taken to the operative suite, was placed in supine position, intubated by anesthesia using LMA, prophylactic IV antibiotics were given per protocol, left arm was tucked to her body,prep and drape of the left pectoralis region was done under the usual sterile technique. Time-out was done verifying the patient's name/date of /planned procedure and destination after the procedure, all were in agreement. I did perform an elliptical transverse incision including the previous scar, dissection was carried on using electrocautery. All the way to the posterior component of the breast where appropriate margin including the inferior previous margin was obtained as well as the superior margin Specimen was oriented with short suture superior and long suture left lateral, previous skin scar anterior and blue ink oriented inferior margin.The specimen was then passed to the circulating nurse for permanent pathology. Copious and thorough irrigation of the cavity was done and hemostasis, followed by application of medium sized clips at the margins of the entire cavity for future reference, followed by deep dermal closure by 2-0 Vicryl, followed by 3-0 Vicryl then 4-0 Monocryl for skin closure followed by Mastisol and Steri-Strips. Lidocaine 2% was injected at the site of the incision Pressure dressing was applied followed by fluffs and a sports bra Patient tolerated the procedure well,count of instruments,needles and sponges were completed at the end of the procedure.And then patient was taken to the recovery area in stable condition. I was present for the whole entire procedure
[2020-10-04] MEDS: lidocaine 2% INJ 20 mL INJECTION (11:55)
[2020-10-04 12:04] VITALS: BP 179/82; PULSE 82; RESP 16; TEMP 36.4; O2SAT 94
[2020-10-04 12:10] VITALS: BP 144/84; PULSE 80; RESP 20; O2SAT 97
[2020-10-04 12:15] VITALS: BP 131/59; PULSE 80; RESP 13; TEMP 36.8; O2SAT 94
[2020-10-04 12:20] VITALS: BP 113/84; PULSE 80; RESP 18; TEMP 36.6; O2SAT 96
--- NOTE | 2020-10-04 12:30 | ANE.PACU2 ---
Inpatient post-anesthesia follow up: Airway intact: Yes Vital signs: Temperature 98.2 F Pulse Rate 80 Respiratory Rate 13 Blood Pressure 131/59 Pulse Oximetry 94 Oxygen Delivery Me thod Room Air Oxygen Flow Rate 8 Fraction of Inspir ed Oxygen Hydration adequate: Yes Nausea and vomiting: No Pain level: 1 Mental status: Baseline
[2020-10-04 12:43] VITALS: BP 111/79; PULSE 72; RESP 18; O2SAT 93
== END 2020-10-04 13:15 | disposition home or self-care (01) ==
PROVIDERS: PCP Family Medicine; Visit Provider Surgery
PROC: (CPT 19303; principal; 2020-10-04 10:30)
DX: D05.12 Intraductal carcinoma in situ of left breast (principal); G47.30 Sleep apnea, unspecified; I10 Essential (primary) hypertension; K21.9 Gastro-esophageal reflux disease without esophagitis; E66.01 Morbid (severe) obesity due to excess calories; Z68.37 Body mass index [BMI] 37.0-37.9, adult; F41.9 Anxiety disorder, unspecified; J44.9 Chronic obstructive pulmonary disease, unspecified; E03.9 Hypothyroidism, unspecified; G47.33 Obstructive sleep apnea (adult) (pediatric); Z87.891 Personal history of nicotine dependence; Z79.82 Long term (current) use of aspirin
CPT/HCPCS: 19303; 96365; J0131; J0690; J2250; J2405; J2704; J3010; J3490; J7030

== ENCOUNTER 2020-10-21 06:30 | Outpatient (CLI) | payer MEDICARE, SELFPAY ==
--- NOTE | 2020-10-21 13:31 | N.ONRAD NP_ITS ---
Radiation Oncology Consultation Patient Name: Kerri Menchaca Date of : 1955 Date of Service: 10/21/2020 Attending Physician: Juancho Beltran M.D. Kerri Menchaca was seen in consultation this afternoon at the request of Vamsi Wagner M.D. for consideration of adjuvant breast radiotherapy for the management of her recently diagnosed early stage breast cancer. A screening mammogram ordered on May 25, 2020 identified a new cluster of calcifications at the 9 o'clock position within the left breast. Diagnostic mammogram (dependently visualized in [facility]) obtained on June 09, 2020 demonstrated persistence of the calcifications in the compression views with ultrasonography revealing no masses. A core biopsy completed on July 16, 2020 diagnosed carcinoma with ductal carcinoma in situ of the cribriform and solid subtypes and comedonecrosis. The breast cancer prognostic profile indicated estrogen receptor positivity (99%) and progesterone receptor antigen (99%) while negative for HER2. The SUSAN???67 was 5%. A left partial mastectomy was performed by Gilmer Jauregui M.D. on August 17, 2020. The pathology report (personally reviewed in [facility]) confirmed a 2 mm, grade 1 invasive ductal carcinoma with DCIS (cribriform subtype with comedonecrosis). Surgical margins were negative for invasive ductal carcinoma but positive for DCIS. A re-excision was completed on October 04, 2020 with no invasive carcinoma or DCIS identified. She has been prescribed adjuvant endocrine therapy (Arimidex). Her medical treatment was canvassed with Vamsi Wagner M.D. She was evaluated today for adjuvant breast radiotherapy. I discussed the [place] [employer] Commission on Cancer Staging and specifically the patient's pathologic stage IA (T1aNx) breast cancer, I also reviewed the National Comprehensive Cancer Network Guidelines endorsing adjuvant radiotherapy and summarized the classic study by the NSABP comparing mastectomy, lumpectomy, and lumpectomy with radiotherapy in addition to the Early Breast Cancer Trialist Collaborative Group meta-analysis that established this treatment standard. She is aware that the addition of radiotherapy to lumpectomy provides improvement in local control and overall survival. Prior to beginning treatment, a planning CT scan will be acquired to delineate the clinical target volume. I would recommend a three week course of hypofractionated radiotherapy to the breast. The potential toxicities of adjuvant breast radiotherapy were recounted. The patient has verbalized understanding and would like to proceed as recommended. Signed by: Dr. Juancho Beltran 10/21/2020 1:29:37 PM
== END 2020-10-21 06:31 | disposition home or self-care (01) ==
LOC: ONCMED 06:32
PROVIDERS: PCP Family Medicine; Visit Provider Radiology Radiation Oncology
DX: C50.812 Malignant neoplasm of overlapping sites of left female breast (principal); Z17.0 Estrogen receptor positive status [ER+]; Z90.12 Acquired absence of left breast and nipple; I10 Essential (primary) hypertension; E03.9 Hypothyroidism, unspecified
CPT/HCPCS: 80061; 84443; 99215

== ENCOUNTER 2020-10-27 06:52 | Outpatient (RCR) | payer MEDICARE, SELFPAY ==
--- NOTE | 2020-10-27 | CT_ITS ---
Radiation Therapy Planning CT images; total exam DLP: 1048.17 mGy-cm MTDD
== END 2020-10-27 23:59 | disposition home or self-care (01) ==
LOC: ONCMED 06:52
PROVIDERS: PCP Family Medicine; Visit Provider Radiology Radiation Oncology
DX: C50.812 Malignant neoplasm of overlapping sites of left female breast (principal); Z17.0 Estrogen receptor positive status [ER+]
CPT/HCPCS: 77280

== ENCOUNTER 2020-11-08 05:34 | Outpatient (RCR) | payer MEDICARE, SELFPAY | END 2020-11-08 15:10 | disposition home or self-care (01) | LOC: ONCMED 05:34 | PROVIDERS: PCP Family Medicine; Visit Provider Radiology Radiation Oncology | DX: Z51.0 Encounter for antineoplastic radiation therapy (principal); C50.212 Malignant neoplasm of upper-inner quadrant of left female breast; Z17.0 Estrogen receptor positive status [ER+] | CPT/HCPCS: 71046; 77014; 77295; 77300; 77334; 77387; 77412; 77427 ==

== ENCOUNTER 2020-11-08 15:22 | Outpatient (CLI) | payer MEDICARE, SELFPAY ==
--- NOTE | 2020-11-08 15:45 | XR_ITS ---
WS: [id number] PROCEDURE: XR chest 2V* 63940 CLINICAL INFORMATION: dysnea - to rule out mets to lung in pt with breast CA COMPARISON: FINDINGS: Heart: Cardiomegaly. Surgical clips left breast. Lungs: Moderate chronic emphysematous changes. No acute pulmonary infiltrates. No focal pneumonia or pleural fluid. Bones: Moderate thoracic kyphosis XR/XR chest 2V* 59611 IMPRESSION: 1. Moderate chronic emphysematous changes. 2. No acute pulmonary infiltrates. No focal pneumonia or pleural fluid. 3. Postoperative changes left breast.
== END 2020-11-08 15:23 | disposition home or self-care (01) ==
PROVIDERS: PCP Family Medicine; Visit Provider Internal Medicine Pulmonary Disease
DX: R06.00 Dyspnea, unspecified (principal)
CPT/HCPCS: 71046

== ENCOUNTER 2020-11-15 08:45 | Outpatient (CLI) | payer MEDICARE, SELFPAY ==
--- NOTE | 2020-11-15 09:57 | PFTS_ITS ---
Date of Study:11/15/20 Date of Dictation: MECHANICS: Forced vital capacity (FVC) is normal. Forced expiratory volume in one second (FEV1) is normal. FEV1/FVC is normal. FLOW VOLUME LOOP: Normal. LUNG VOLUMES: Total lung capacity (TLC) is normal. Residual volume (RV) is reduced. DIFFUSING CAPACITY FOR CARBON MONOXIDE: Mild reduced. INTERPRETATION: The prebronchodilator spirometry is normal. The total lung capacity is normal. There is mild reduction of residual volume. Gas exchange (DLCO) is mildly reduced. MTDD
== END 2020-11-15 08:46 | disposition home or self-care (01) ==
LOC: RT 08:48
PROVIDERS: PCP Family Medicine; Visit Provider Internal Medicine Pulmonary Disease
DX: R06.02 Shortness of breath (principal)
CPT/HCPCS: 94010; 94726; 94729

== ENCOUNTER 2020-11-18 14:39 | Outpatient (CLI) | payer MEDICARE, SELFPAY ==
--- NOTE | 2020-11-18 15:45 | USCV_ITS ---
Kerri Menchaca Age: 65 Gender: F : 1955 Exam Date: 11/18/2020 15:01 Ordering Phys: Mitchell Hensley MD Technologist: Jennifer Sánchez [place]am Location[place] [facility] [place]: SOB BP: 137 / 85 HR: 66 Rhythm: Sinus Technical Quality: Technically difficult study MEASUREMENTS (Male / Female) Normal Values 2D ECHO LV Diastolic Diameter PLAX 4.5 cm 4.2 - 5.9 / 3.9 - 5.3 cm LV Systolic Diameter PLAX 2.7 cm LV Chamber Size 3.3 cm IVS Diastolic Thickness 1.6 cm 0.6 - 1.0 / 0.6 - 0.9 cm IVS Systolic Thickness 2.1 cm LVPW Diastolic Thickness 1.9 cm 0.6 - 1.0 / 0.6 - 0.9 cm LVPW Systolic Thickness 1.9 cm RV Chamber Size 2.6 cm LVOT Diameter 2.1 cm LV Ejection Fraction 2D Teich 70.5 % LV Ejection Fraction MOD 2C 52.3 % LV Ejection Fraction 2C AL 50.5 % LA Diameter 3.2 cm LA Width 3.4 cm LA Height 3.8 cm RA Width 3.4 cm RA Height 3.3 cm Aorta at Sinotubular Diameter 2.7 cm M-MODE LV Diastolic Diameter MM 4.6 cm 4.2 - 5.9 / 3.9 - 5.3 cm LV Systolic Diameter MM 3.6 cm LV Ejection Fraction MM Teich 44.0 % IVS Diastolic Thickness MM 1.3 cm 0.6 - 1.0 / 0.6 - 0.9 cm IVS Systolic Thickness MM 2.2 cm LVPW Diastolic Thickness MM 1.8 cm 0.6 - 1.0 / 0.6 - 0.9 cm LVPW Systolic Thickness MM 2.1 cm RV Diastolic Diameter MM 0.5 cm Aortic Annulus Diameter 3.0 cm LA Ao Ratio MM 1.2 MV E Point Septal Separation 0.7 cm DOPPLER AV Peak Velocity 144.0 cm/s LVOT Peak Velocity 111.0 cm/s AV Area Cont Eq vti 2.7 cm squared AV Area Cont Eq pk 2.6 cm squared MV Area PHT 3.3 cm squared Mitral E to A Ratio 0.9 MV E' Velocity 70.0 cm/s Mitral E to LV E' Septal Ratio 10.3 TR Peak Velocity 159.0 cm/s TR Peak Gradient 10.1 mmHg TR Mean Velocity 112.1 cm/s TR Mean Gradient 5.7 mmHg TR Velocity Time Integral 35.9 cm TV Peak E Velocity 58.0 cm/s Right Atrial Pressure 3.0 mmHg Pulmonary Artery Systolic Pressu 13.1 mmHg PV Peak Velocity 93.0 cm/s RV Acceleration Time 0.1 s RV Ejection Time 0.3 s RV AcT/ET 0.4 FINDINGS Left Ventricle Normal left ventricular cavity size. Normal left ventricular systolic function. Left ventricular ejection fraction is estimated at 55-60 %. Although no diagnostic regional wall motion abnormalities could be identified, this possibility cannot be completely excluded based on the study. Indeterminate diastolic function. Right Ventricle Normal right ventricular size and systolic function. Right ventricular systolic pressure 13.1 mmHg. Right Atrium Right atrium not well visualized. Normal right atrial size. Left Atrium Left atrium not well visualized. Normal left atrial size. Mitral Valve Mildly thickened mitral valve. No mitral valve regurgitation. Aortic Valve Aortic valve not well visualized. No aortic valve stenosis. Tricuspid Valve Structurally normal tricuspid valve. Trace tricuspid valve regurgitation. Pulmonic Valve Structurally normal pulmonic valve. No pulmonary valve stenosis. Pericardium No pericardial effusion. Aorta Normal size aortic root and proximal ascending aorta. CONCLUSIONS 1. This is a technically difficult study. 2. Normal left ventricular cavity size. Normal left ventricular systolic function. Left ventricular ejection fraction is estimated at 55-60 %. Although no diagnostic regional wall motion abnormalities could be identified, this possibility cannot be completely excluded based on the study. 3. Normal right ventricular size and systolic function. 4. No significant valvular abnormality. 5. No prior similar studies to compare. Esther Davison MD (Electronically Signed) Final Date: 22 November 2020 13:35 S
== END 2020-11-18 14:40 | disposition home or self-care (01) ==
LOC: US 14:43
PROVIDERS: PCP Family Medicine; Visit Provider Internal Medicine Pulmonary Disease
DX: R06.02 Shortness of breath (principal)
CPT/HCPCS: 93306

== ENCOUNTER 2020-11-24 07:00 | Outpatient (RCR) | payer MEDICARE, SELFPAY ==
--- NOTE | 2020-11-09 15:09 | ONCRAD TMN_ITS ---
Radiation Oncology Treatment Management Note Patient Name: Kerri Menchaca Date of : 1955 Date of Service: 11/09/2020 Attending Physician: Juancho Beltran M.D. eKrri Menchaca is a 65 year-old white female diagnosed with a pathological stage IA (T1aNx), grade I invasive ductal carcinoma of the upper-inner quadrant of the left breast. The breast cancer profile was positive for estrogen receptor, progesterone receptor, and negative for HER-2. The Ki-67 was 5%. A left partial mastectomy was performed by Gilmer Jauregui M.D. on August 17, 2020. Surgical margins were negative for invasive ductal carcinoma but positive for DCIS. A re-excision was completed on October 04, 2020 with no invasive carcinoma or DCIS identified. She has received 10.7 Gy of a prescribed 40 Gy delivered with a 3D conformal radiotherapy plan utilizing opposed tangential portal gallardo. Upon review of systems, she denied any breast complaints to radiotherapy. On physical examination, the patient weighed 220 lbs. Her temperature was 98.3 ???F with a blood pressure of 131/65 mmHg. Her pulse was 72 bpm and her respiratory rate was 20. There was no erythema within the treatment gallardo of the right breast. Continue hypofractionated left breast radiotherapy as prescribed. Signed by: Dr. Juancho Beltran 11/09/2020 3:08:07 PM
--- NOTE | 2020-11-16 15:11 | ONCRAD TMN_ITS ---
Radiation Oncology Treatment Management Note Patient Name: Kerri Menchaca Date of : 1955 Date of Service: 11/16/2020 Attending Physician: Juancho Beltran M.D. 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 The breast cancer profile was positive for estrogen receptor, progesterone receptor, and negative for HER-2. The Ki-67 was 5%. A left partial mastectomy was performed by Gilmer Jauregui M.D. on August 17, 2020. Surgical margins were negative for invasive ductal carcinoma but positive for DCIS. A re-excision was completed on October 04, 2020 with no invasive carcinoma or DCIS identified. She has received 24 Gy of a prescribed 40 Gy delivered with a 3D conformal radiotherapy plan utilizing opposed tangential portal gallardo. Upon review of systems, she denied any breast complaints to radiotherapy. On physical examination, the patient weighed 217 lbs. Her temperature was 97.9 ???F with a blood pressure of 125/77 mmHg. Her pulse was 67 bpm and her respiratory rate was 18. There was no erythema within the treatment gallardo of the left breast. Continue hypofractionated left breast radiotherapy as planned. Signed by: Dr. Juancho Beltran 11/16/2020 3:10:10 PM
--- NOTE | 2020-11-23 14:58 | ONCRAD TMN_ITS ---
Radiation Oncology Treatment Management Note Patient Name: Kerri Menchaca Date of : 1955 Date of Service: 11/23/2020 Attending Physician: Juancho Beltran M.D. 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 The breast cancer profile was positive for estrogen receptor, progesterone receptor, and negative for HER-2. The Ki-67 was 5%. A left partial mastectomy was performed by Gilmer Jauregui M.D. on August 17, 2020. Surgical margins were negative for invasive ductal carcinoma but positive for DCIS. A re-excision was completed on October 04, 2020 with no invasive carcinoma or DCIS identified. She has received 24 Gy of a prescribed 40 Gy delivered with a 3D conformal radiotherapy plan utilizing opposed tangential portal gallardo. Upon review of systems, she denied any breast complaints to radiotherapy. On physical examination, the patient weighed 217 lbs. Her temperature was 97.2 ???F with a blood pressure of 138/77 mmHg. Her pulse was 73 bpm and her respiratory rate was 18. There was minimal erythema within the treatment gallardo of the left breast (inframammary fold). Continue hypofractionated left breast radiotherapy as prescribed. Signed by: Dr. Juancho Beltran 11/23/2020 2:57:26 PM
== END 2020-11-26 23:59 | disposition home or self-care (01) ==
LOC: ONCMED 07:00
PROVIDERS: PCP Family Medicine; Visit Provider Radiology Radiation Oncology
DX: Z51.0 Encounter for antineoplastic radiation therapy (principal); C50.812 Malignant neoplasm of overlapping sites of left female breast; Z17.0 Estrogen receptor positive status [ER+]
CPT/HCPCS: 77336; 77387; 77412; 87635

== ENCOUNTER 2020-12-09 10:27 | Outpatient (RCR) | payer MEDICARE, SELFPAY ==
--- NOTE | 2020-12-09 10:57 | ONCRAD EPV_ITS ---
Radiation Oncology Follow-Up Note Patient Name: Kerri Menchaca Date of : 1955 Date of Service: 12/09/2020 Attending Physician: Juancho Beltran M.D. Kerri Menchaca returned to my office this morning for a routinely scheduled post-radiotherapy appointment. She completed adjuvant radiotherapy in October for the post-operative management of a pathological stage IA (T1aNx), grade I invasive ductal carcinoma of the upper-inner quadrant of the left breast. The breast cancer profile was positive for estrogen receptor, progesterone receptor, and negative for HER-2. The Ki-67 was 5%. A left partial mastectomy was performed by Gilmer Jauregui M.D. on August 17, 2020. Surgical margins were negative for invasive ductal carcinoma but positive for DCIS. A re-excision was completed on October 04, 2020 with no invasive carcinoma or DCIS identified. Daily radiotherapy was administered between the dates of November 04, 2020 through November 24, 2020. A prescribed dose of 40 Gy was delivered in 15 fractions encompassing 21 elapsed days. On review of systems, she did not report any breast complaints. On physical examination, she weighed 214 lbs. Her temperature was 98.2???F and the blood pressure was 124/78 mmHg. The pulse was 66 bpm and her respiratory rate was 18 breaths/min. Examination of the left breast identified minimal erythema and desquamation. In summary, Ms. Menchaca returned for a routine post-radiotherapy follow-up. She has no residual sequelae from radiotherapy and will continue follow-up with her medical oncologist as scheduled. Signed by: Dr. Juancho Beltran 12/09/2020 10:55:33 AM
== END 2020-12-27 23:59 | disposition home or self-care (01) ==
LOC: ONCMED 10:27
PROVIDERS: PCP Family Medicine; Visit Provider Radiology Radiation Oncology
DX: C50.212 Malignant neoplasm of upper-inner quadrant of left female breast (principal); Z17.0 Estrogen receptor positive status [ER+]; Z79.899 Other long term (current) drug therapy; Z92.3 Personal history of irradiation
CPT/HCPCS: 99024

== ENCOUNTER 2020-12-29 05:54 | Outpatient (RCR) | payer MEDICARE, SELFPAY ==
[2020-12-29 14:30] LABS: Basophils % 0.3 %; Eosinophils # 0.2 10^3/uL (0.0-0.8); Hematocrit 38.5 % (37.0-47.0); Hemoglobin 12.4 g/dL (11.5-15.3); Lymphocytes % 28.3 %; Mean Corpuscular HGB Conc 32.2 g/dL (30.0-36.0); Mean Corpuscular Hemoglobin 30.2 pg (28.0-34.0); Mean Corpuscular Volume 93.7 fL (81-99); Mean Platelet Volume 10.3 fL (7.4-10.4); Monocytes # 0.6 10^3/uL (0.2-0.9); Monocytes % 7.9 %; Neutrophils # 4.24 10^3/uL (1.8-7.7); Neutrophils % 59.9 %; Nucleated Red Blood Cells % 0 %; Platelet Count 354 10^3/cmm (130-400); Red Blood Count 4.11 10^6/uL (4.1-5.3); White Blood Count 7.1 10^3/uL (4.0-10.0)
[2020-12-29 14:52] LABS: Alanine Aminotransferase 14 U/L (0-33); Albumin Level 4.2 g/dL (3.5-5.2); Alkaline Phosphatase 102 IU/L (35-105); Anion Gap 14.1 (5-19); Aspartate Amino Transferase 12 U/L (0-32); Blood Urea Nitrogen 10 mg/dL (8-23); Calcium 9.2 mg/dL (8.5-10.5); Carbon Dioxide 27 mmol/L (22-29); Chloride 102 mmol/L (98-107); Globulin 3.2 g/dL (1.3-4.6); Glomerular Filtration Rate 71.8 mL/min (90-130); Glucose 141 mg/dL (65-115); Osmolality Calculated 289 mOsm/kg (285-295); Potassium 4.1 mmol/L (3.5-5.1); Sodium 139 mmol/L (136-145); Total Bilirubin 0.2 mg/dL (0.15-1.2); Total Protein 7.4 g/dL (6.6-8.7)
--- NOTE | 2020-12-29 16:51 | ONC FU_ITS ---
Dr. Wagner follow up note Patient: Kerri Menchaca Unit #: [id number]: 1955 Dicatated By: Drake Wagner M.D.Date of Visit:Dec 29, 2020 Onc Med Follow-up/Prog Note History of Present Illness: Ms. Kerri Menchaca, is a 65-year-old female with history of fibrocystic disease, underwent bilateral lumpectomy when she was in 20s and prior to that when she was [id number], she underwent benign tumor removal from her left breast. As per patient her routine yearly mammogram done on May 25, 2020 showed new cluster of calcifications in the left breast just medial to the nipple line at 9 o'clock position, subsequently underwent left breast digital mammogram on June 09, 2020 which confirmed suspicious calcification in the left breast at 9 o'clock position, subsequently she developed fever and generalized weakness and fatigue underwent Covid 19 testing which came back positive, as per patient her symptoms and condition improved just with supportive care. On July 15, 2020 she underwent stereotactic left breast biopsy and final pathology report came back ductal carcinoma site to with a focus of microinvasive carcinoma which was less than a millimeter in the greatest dimension and is present on the edge of the resection. Patient denies any nipple discharge, denies any overlying skin changes denies any left axillary lymphadenopathy, denies any bony pains, denies any new left breast mass but she has, as per patient lumpy breasts. Denies any new bony pains denies any weight loss, denies any fever chills denies any melena or hematochezia, patient is a former smoker quit smoking in 2002. 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 daily on August 30, 2020, Status post left breast postlumpectomy radiation therapy, starting November 04, 2020 through November 24, 2020 Came for follow-up, denies any specific complaints, no fever chills, no nausea or vomiting, no diarrhea or constipation, occasional hot flashes otherwise tolerating her Arimidex along with vitamin D and calcium well, patient has completed postlumpectomy radiation therapy to her left breast without significant problem Medications: Abilify 1 Tablet (of 15 mg) Tablet Oral daily, Anastrozole (1 mg) Tablet Oral daily, Anoro Ellipta 1 (62.5-25 mcg/inh) Aerosol Powder, Breath Activated Inhalation daily, B Complex 1 Tablet Oral daily, buPROPion HCl ER (XL) 1 Tablet (of 300 mg) Tablet SR 24 HR Oral daily, [facility] Fish Oil 1 Capsule (of 1200 mg) Oral daily, Daily Multiple Vitamins 1 Tablet Oral daily, DULoxetine HCl 2 Capsule (of 60 mg) Capsule Delayed Release Particles Oral daily, lamoTRIgine 1 Tablet (of 200 mg) Oral daily, Levothyroxine Sodium 1 Tablet (of 100 mcg) Oral daily, Losartan Potassium 1 Tablet (of 25 mg) Oral daily, Omeprazole 1 Tablet (of 20 mg) Tablet, enteric coated Oral daily Allergies: Codeine Sulfate and Contrast Iodine. Review of Systems: Review of Systems is not available for this patient. Vital Signs: Performed on Dec 29, 2020 15:07 Height - 64.00 in Weight - 213.8 lbs (LOW) BSA - 2.01 sq.m BMI - 36.70 (HIGH) Temperature - 97.4 F (LOW) Pulse - 79 /min Respiration - 18 /min BP - 130/80 mm(hg) O2 Sat - 98 % Pain - 7 Fatigue - 4 Performance Status: 0 - Fully active, able to carry on all predisease activities without restrictions. (ECOG) Physical Examination: Respiratory - Lungs are clear to auscultation, Cardiovascular - Regular rate and rhythm of heart, Gastrointestinal - Soft, bowel sounds present, Extremities - No visible edema or rash. Lab/Imaging: Test performed on Aug 26, 2020 10:50 Sodium 138 mmol/L Potassium 4.0 mmol/L Chloride 101 mmol/L CO2 27 mmol/L Anion Gap 14.0 BUN 10 mg/dL Creatinine 0.8 mg/dL Cr Clearance (Est) 109.67 mL/min eGFR 71.8 mL/min Glucose 141 mg/dL Osmolality - Calculated 287 mOsm/kg Calcium 9.8 mg/dL Protein, Total 7.2 g/dL Albumin 4.1 g/dL Globulin 3.1 g/dL Bilirubin, Total 0.2 mg/dL ALT (SGPT) 16 U/L AST (SGOT) 13 U/L Alkaline Phosphatase 101 IU/L WBC 10.4 10 3/uL RBC 4.17 10 6/uL HGB 12.3 g/dL HCT 38.6 % MCV 92.6 fL MCH 29.5 pg MCHC 31.9 g/dL RDW 14.1 % Platelet Count 367 10 3/cmm MPV 10.7 fL Neutrophils 6.64 10 3/uL Lymphocytes 2.8 10 3/uL Monocytes 0.7 10 3/uL Eosinophils 0.2 10 3/uL Basophils 0.0 10 3/uL Neutrophil % 63.7 % Lymphocyte % 26.9 % Monocyte % 6.6 % Eosinophil % 1.7 % Basophils % 0.4 % NRBC % 0 % Impression: Ductal carcinoma in situ with microinvasive carcinoma which was seen on the edge of the section, but stereotactic left breast biopsy done on July 15, 2020, Subsequently underwent left breast lumpectomy on August 17, 2020 which shows invasive ductal carcinoma (2 mm focus) along with ductal carcinoma in situ with cribriform and comedo necrosis grade 3 or margins were clear in specimen A except in specimen B where only inferior margin was positive with DCIS, p T1 a, NX Prognostic profiling showed ER 99% MI 99% positive, HER-2/fausto negative, Started on Arimidex 1 mg along with vitamin D and calcium supplement on August 30, 2020, Status post postlumpectomy radiation therapy to the left breast starting on November 04, 2020 through November 24, 2020 History of bilateral breast lumpectomy when she was in her 20s and history of left breast benign tumor removal at age 16 Plan: . Discussed with patient regarding her labs white blood count 7.1 hemoglobin 12.4 hematocrit 38.5 platelets 354,000 CMP within normal limits Clinically, patient doing well with no new signs symptoms history of recurrence of disease, tolerating adjuvant therapy with Arimidex along with vitamin D and calcium well but with expected side effect, patient has recently finished her postlumpectomy radiation therapy to her left breast, she tolerated it very well. We will continue with Arimidex/vitamin D/calcium and she will return to clinic in 4 months with CBC CMP Signed By: Drake Wagner M.D. <<Signature on File>>
== END 2021-01-26 23:59 | disposition home or self-care (01) ==
LOC: ONCMED 05:54
PROVIDERS: PCP Family Medicine; Visit Provider Internal Medicine Hematology & Oncology
DX: D05.12 Intraductal carcinoma in situ of left breast (principal); Z90.12 Acquired absence of left breast and nipple; Z90.11 Acquired absence of right breast and nipple; E55.9 Vitamin D deficiency, unspecified; E83.51 Hypocalcemia; Z79.811 Long term (current) use of aromatase inhibitors; Z79.899 Other long term (current) drug therapy
CPT/HCPCS: 36415; 80053; 85025; 99214

== ENCOUNTER 2021-01-03 20:00 | Outpatient (CLI) | payer MEDICARE, SELFPAY | END 2021-01-03 20:01 | disposition home or self-care (01) | LOC: SLEEP 01-04 08:11 | PROVIDERS: PCP Family Medicine; Visit Provider Internal Medicine Pulmonary Disease | DX: G47.33 Obstructive sleep apnea (adult) (pediatric) (principal) | CPT/HCPCS: 95811 ==

== ENCOUNTER → 2021-01-19 09:47 | Outpatient (BNVA) | payer MEDICARE, SELFPAY | PROVIDERS: PCP Family Medicine; Visit Provider Nurse Practitioner Family | DX: M25.562 Pain in left knee (principal) | CPT/HCPCS: 73562 ==

== ENCOUNTER → 2021-02-17 11:28 | Outpatient (BNVA) | payer MEDICARE, SELFPAY | PROVIDERS: PCP Family Medicine; Referring Provider Registered Nurse; Visit Provider Registered Nurse | DX: Z79.899 Other long term (current) drug therapy (principal) | CPT/HCPCS: 36415; 82306; 82607; 83540 ==

== ENCOUNTER → 2021-04-21 10:22 | Outpatient (BNVA) | payer MEDICARE, SELFPAY | PROVIDERS: PCP Family Medicine; Visit Provider Family Medicine | DX: I10 Essential (primary) hypertension (principal); M17.12 Unilateral primary osteoarthritis, left knee; E03.9 Hypothyroidism, unspecified; K21.9 Gastro-esophageal reflux disease without esophagitis; Z68.36 Body mass index [BMI] 36.0-36.9, adult; F17.211 Nicotine dependence, cigarettes, in remission; Z71.89 Other specified counseling | CPT/HCPCS: 80053; 80061; 84443 ==

== ENCOUNTER 2021-05-04 10:35 | Outpatient (CLI) | payer MEDICARE, SELFPAY ==
[2021-05-04 11:23] LABS: Basophils % 0.4 %; Eosinophils # 0.2 10^3/uL (0.0-0.8); Eosinophils % 2.4 %; Hematocrit 35.1 % (37.0-47.0); Hemoglobin 11.1 g/dL (11.5-15.3); Lymphocytes # 2.6 10^3/uL (0.8-4.8); Lymphocytes % 31.7 %; Mean Corpuscular HGB Conc 31.6 g/dL (30.0-36.0); Mean Corpuscular Hemoglobin 28.5 pg (28.0-34.0); Mean Platelet Volume 11.2 fL (7.4-10.4); Monocytes # 0.7 10^3/uL (0.2-0.9); Neutrophils % 56.4 %; Nucleated Red Blood Cells % 0 %; Platelet Count 318 10^3/cmm (130-400); Red Cell Distribution Width 14.5 % (12.1-15.1); White Blood Count 8.3 10^3/uL (4.0-10.0)
[2021-05-04 11:57] LABS: Alanine Aminotransferase 14 U/L (0-33); Albumin Level 3.9 g/dL (3.5-5.2); Alkaline Phosphatase 95 IU/L (35-105); Blood Urea Nitrogen 5 mg/dL (8-23); Calcium 9.4 mg/dL (8.5-10.5); Carbon Dioxide 25 mmol/L (22-29); Chloride 101 mmol/L (98-107); Globulin 3.1 g/dL (1.3-4.6); Glomerular Filtration Rate 83.7 mL/min (90-130); Glucose 98 mg/dL (65-115); Osmolality Calculated 281 mOsm/kg (285-295); Sodium 137 mmol/L (136-145); Total Bilirubin 0.2 mg/dL (0.15-1.2)
[2021-05-04 11:58] LABS: Anion Gap 15.4 (5-19); Aspartate Amino Transferase 18 U/L (0-32); Potassium 4.4 mmol/L (3.5-5.1)
--- NOTE | 2021-05-04 13:13 | ONC FU_ITS ---
Dr. Wagner follow up note Patient: Kerri Menchaca Unit #: [id number]: 1955 Dicatated By: Drake Wagner M.D.Date of Visit:May 04, 2021 Onc Med Follow-up/Prog Note History of Present Illness: Ms. Kerri Menchaca, is a 65-year-old female with history of fibrocystic disease, underwent bilateral lumpectomy when she was in 20s and prior to that when she was [id number], she underwent benign tumor removal from her left breast. As per patient her routine yearly mammogram done on May 25, 2020 showed new cluster of calcifications in the left breast just medial to the nipple line at 9 o'clock position, subsequently underwent left breast digital mammogram on June 09, 2020 which confirmed suspicious calcification in the left breast at 9 o'clock position, subsequently she developed fever and generalized weakness and fatigue underwent Covid 19 testing which came back positive, as per patient her symptoms and condition improved just with supportive care. On July 15, 2020 she underwent stereotactic left breast biopsy and final pathology report came back ductal carcinoma site to with a focus of microinvasive carcinoma which was less than a millimeter in the greatest dimension and is present on the edge of the resection. Patient denies any nipple discharge, denies any overlying skin changes denies any left axillary lymphadenopathy, denies any bony pains, denies any new left breast mass but she has, as per patient lumpy breasts. Denies any new bony pains denies any weight loss, denies any fever chills denies any melena or hematochezia, patient is a former smoker quit smoking in 2002. 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 daily on August 30, 2020, Status post left breast postlumpectomy radiation therapy, starting November 04, 2020 through November 24, 2020 Came for follow-up, denies any specific complaints, no fever chills, no nausea or vomiting, no diarrhea or constipation, no melena hematochezia, no hemoptysis hematemesis, no new bony pains, occasionally hot flashes but is tolerating Arimidex/vitamin D/calcium well otherwise Medications: Abilify 1 Tablet (of 15 mg) Tablet Oral daily, Anastrozole (1 mg) Tablet Oral daily, Anoro Ellipta 1 (62.5-25 mcg/inh) Aerosol Powder, Breath Activated Inhalation daily, B Complex 1 Tablet Oral daily, buPROPion HCl ER (XL) 1 Tablet (of 300 mg) Tablet SR 24 HR Oral daily, [facility] Fish Oil 1 Capsule (of 1200 mg) Oral daily, Daily Multiple Vitamins 1 Tablet Oral daily, DULoxetine HCl 2 Capsule (of 60 mg) Capsule Delayed Release Particles Oral daily, lamoTRIgine 1 Tablet (of 200 mg) Oral daily, Levothyroxine Sodium 1 Tablet (of 100 mcg) Oral daily, Losartan Potassium 1 Tablet (of 25 mg) Oral daily, Omeprazole 1 Tablet (of 20 mg) Tablet, enteric coated Oral daily Allergies: Codeine Sulfate and Contrast Iodine. Review of Systems: Review of Systems is not available for this patient. Vital Signs: Performed on May 04, 2021 12:38 Height - 64.00 in Weight - 220.8 lbs (HIGH) BSA - 2.04 sq.m BMI - 37.90 (HIGH) Temperature - 98.4 F Pulse - 89 /min Respiration - 18 /min BP - 147/81 mm(hg) (HIGH) O2 Sat - 98 % Pain - 0 Fatigue - 0 Performance Status: 0 - Fully active, able to carry on all predisease activities without restrictions. (ECOG) Physical Examination: Respiratory - Lungs are clear to auscultation, Cardiovascular - Regular rate and rhythm of heart, Gastrointestinal - Soft, bowel sounds present, Extremities - No visible edema, no rash. Lab/Imaging: Most recent lab results are not available for this patient. Impression: Ductal carcinoma in situ with microinvasive carcinoma which was seen on the edge of the section, but stereotactic left breast biopsy done on July 15, 2020, Subsequently underwent left breast lumpectomy on August 17, 2020 which shows invasive ductal carcinoma (2 mm focus) along with ductal carcinoma in situ with cribriform and comedo necrosis grade 3 or margins were clear in specimen A except in specimen B where only inferior margin was positive with DCIS, p T1 a, NX Prognostic profiling showed ER 99% WA 99% positive, HER-2/fausto negative, Started on Arimidex 1 mg along with vitamin D and calcium supplement on August 30, 2020, Status post postlumpectomy radiation therapy to the left breast starting on November 04, 2020 through November 24, 2020 History of bilateral breast lumpectomy when she was in her 20s and history of left breast benign tumor removal at age 16 Plan: Discussed with patient regarding her labs white blood count 8.3 hemoglobin 11.1 hematocrit 35.1 platelets 318,000 CMP within normal limits Clinically, patient doing well with no new signs symptoms just to disease progression, tolerating Arimidex/vitamin D/calcium well but her follow-up labs shows mild drop in her hemoglobin now 11.1 g compared to 12.4 g previously, etiology unclear there is no obvious sign of gross bleeding or hemolysis, patient not symptomatic. At this point, as , patient is going to see her PMD Dr. Huggins in a week so we will request her to repeat her CBC if it shows persistent or progressive anemia, will consider anemia work-up including iron studies, B12 folic acid and reticulocyte count and check a stool for occult bleeding. Otherwise she will return to clinic in 4 months with CBC CMP and follow-up mammogram Signed By: Drake Wagner M.D. <<Signature on File>>
== END 2021-05-04 10:36 | disposition home or self-care (01) ==
LOC: ONCMED 10:38
PROVIDERS: PCP Family Medicine; Visit Provider Internal Medicine Hematology & Oncology
DX: D05.12 Intraductal carcinoma in situ of left breast (principal); Z79.811 Long term (current) use of aromatase inhibitors; Z79.899 Other long term (current) drug therapy
CPT/HCPCS: 36415; 80053; 85025; 99214

== ENCOUNTER → 2021-05-17 11:24 | Outpatient (BNVA) | payer MEDICARE, SELFPAY | PROVIDERS: PCP Family Medicine; Visit Provider Family Medicine | DX: D64.9 Anemia, unspecified | CPT/HCPCS: 85025 ==

== ENCOUNTER 2021-07-01 14:35 | Outpatient (CLI) | payer MEDICARE, SELFPAY ==
--- NOTE | 2021-07-01 14:40 | MM_ITS ---
WS: [id number] LEFT DIGITAL MAMMOGRAPHY WITH CAD CLINICAL INFORMATION: HX OF BREAST CA;NEW BREAST LUMPS LEFT BREAST COMPARISON: August 17, 2020 TECHNIQUE: 10 views of the left breast were obtained. FINDINGS: Scattered fibroglandular densities of the left breast. Postoperative changes lumpectomy left breast w ith surgical clips. No suspicious residual calcifications at the lumpectomy site. No definite mammogr aphic suspicious abnormalities deep to the palpable markers. Ultrasound is pending. Right breast appears unremarkable and unchanged. ULTRASOUND BREAST LEFT TECHNIQUE: Ultrasound left breast focused area of concern. CLINICAL INFORMATION: HX OF BREAST CA;NEW BREAST LUMPS LEFT BREAST COMPARISON: None. FINDINGS: Ultrasound left breast. Dense parenchymal scar tissue at the lumpectomy site. No suspicious cystic or solid lesions. No suspicious lesions at the 2 to 6:00 position patient directed areas. No lesions t o target for biopsy. MM/[id number] IMPRESSION: BI-RADS: 2-Benign FOLLOW UP: 1 Year Follow-up Recommend return to annual diagnostic mammography.
== END 2021-07-01 14:36 | disposition home or self-care (01) ==
LOC: RADSHAW 14:37
PROVIDERS: PCP Family Medicine; Visit Provider Internal Medicine Hematology & Oncology
DX: Z85.3 Personal history of malignant neoplasm of breast (principal); N63.20 Unspecified lump in the left breast, unspecified quadrant
CPT/HCPCS: 76642; 77066

== ENCOUNTER → 2021-07-04 13:14 | Outpatient (BNVA) | payer MEDICARE, SELFPAY | PROVIDERS: PCP Family Medicine; Visit Provider Surgery | DX: Z20.822 Contact with and (suspected) exposure to COVID-19 (principal); K59.00 Constipation, unspecified | CPT/HCPCS: 87635 ==

== ENCOUNTER 2021-07-08 08:58 | Day surgery (SDC) | payer MEDICARE, SELFPAY ==
[2021-07-06 13:52] VITALS: BMI 37.8
--- NOTE | 2021-07-08 09:16 | ANES.PREANE2 ---
Pre-Anesthetic Assessment Pre-Anesthetic Assessment: Height/Weight: Height 1.63 m Weight 99.79 kg Preop Diagnosis: Left breast cancer Proposed Procedure: Operation Date: 07/08/21 11:00 Proposed Procedures p Colonoscopy 93924 Z12.11 K59.00(Not Applicable) - Gilmer Medina MD Familial anesthetic complications: None Last intake: > 8 hrs Social: Social History: No alcohol and No tobacco Exam: Pre-Anes Outpt Exam: alert, oriented x 3, clear to auscultation bilaterally and regular rate & rhythm Airway: MP: 2 Dentition: Other (crowns) Pulmonary: Pulmonary: COPD and Sleep apnea CV/HEM: CV/HEM: HTN GI: GI: GERD Metabolic: Metabolic: Thyroid Anesthetic Plan: ASA status: 3 Risk of > 500 ml blood loss (7ml/kg in children): No PFSH Anesthesia PFSH: Medical History (Updated 06/08/21 @ 13:54 by Marisela Srivastava) Bipolar II disorder COPD (chronic obstructive pulmonary disease) Essential hypertension Generalized anxiety disorder GERD (gastroesophageal reflux disease) Hypothyroid ALANNA (obstructive sleep apnea) Post-traumatic stress disorder, chronic Psychiatric care Surgical History H/O: hysterectomy History of ankle surgery History of lumpectomy of left breast S/P appendectomy S/P breast biopsy S/P cholecystectomy S/P shoulder surgery S/P subtotal thyroidectomy S/P tonsillectomy and adenoidectomy Family History Other CAD (coronary artery disease) Cancer Hypertension Lung disease Psychiatric illness Social History Quit status (tobacco): has quit using tobacco Year quit tobacco: 2002 [id number] Second hand smoke exposure: Yes Smoking risk assessment/counseling performed?: Yes Alcohol intake: former Former alcohol use details: 12 PACK OF BEER PER DAY AND 8-10 SHOTS OF WHISKEY DAILY Lives independently: Yes Household members: none Housing: House Marital status: Current occupational status: retired Pets and animals: Yes History of recent travel: No Current gender identity: Female Female Reproductive History: Para: 0 Spontaneous abortions: Yes Data Anesthesia Cardiac Studies: No Data to Display
[2021-07-08 09:37] VITALS: BP 155/85; PULSE 82; RESP 18; TEMP 36.6; O2SAT 95
[2021-07-08] MEDS: sodium chloride 0.9% 1,000 ML 30 ML IV (09:38)
--- NOTE | 2021-07-08 10:24 | P.HP_ITS ---
Same Day Surgery H&P Indication for Procedure/HPI DATE OF PROCEDURE: July 08, 2021 CHIEF COMPLAINT/INDICATIONFOR SURGICAL PROCEDURE: Screening colonoscopy PREOP DIAGNOSIS: Screening colonoscopy PLANNED PROCEDRUE: Operation Date: 07/08/21 11:00 Proposed Procedures p Colonoscopy 42075 Z12.11 K59.00(Not Applicable) - Gilmer Medina MD 05/23/2021 This is a pleasant 65 years old female patient well-known to me from previous clinical encounter. Patient is referred to me as she has been having alternating bowel habits between constipation and diarrhea,she is due for screening colonoscopy. Apparently the patient has history of anemia. 07/08/21 Patient comes today for screening colonoscopy ROS All systems have been reviewed negative except as per the above or per problem list Medications/Allergies* Home Medications Medication Instructions Recorded Confirmed Type aspirin 81 mg tablet,delayed 81 mg PO QDAY 08/22/19 07/08/21 History release multivitamin 1 tab PO QAM 08/22/19 07/08/21 History omega-3s 360 kq-eck-val-fish oil 1 cap PO QDAY cap 08/22/19 07/08/21 History 1,200 mg-D3 1,000 unit capsule vitamin B complex 1 tab PO DAILY 08/26/19 07/08/21 History anastrozole 1 mg tablet 1 mg PO DAILY 09/30/20 07/08/21 History Calcarb 600 With Vitamin D 600 mg PO DAILY 10/01/20 07/08/21 History garlic 300 mg PO DAILY 04/21/21 07/08/21 History aripiprazole [Abilify] 20 mg PO DAILY 07/06/21 07/08/21 History Allergies/Adverse Reactions Allergy/AdvReac Type Severity Reaction Status Date / Time codeine Allergy Mild Unknown Verified 07/08/21 10:25 iodine Allergy Unknown Verified 07/08/21 10:25 Pertinent History/Comorbid Conditions* Medical History (Updated 06/08/21 @ 13:54 by Marisela Srivastava) Bipolar II disorder COPD (chronic obstructive pulmonary disease) Essential hypertension Generalized anxiety disorder GERD (gastroesophageal reflux disease) Hypothyroid ALANNA (obstructive sleep apnea) Post-traumatic stress disorder, chronic Psychiatric care Surgical History (Updated 10/21/20 @ 10:25 by Asha Huggins DO) H/O: hysterectomy History of ankle surgery History of lumpectomy of left breast S/P appendectomy S/P breast biopsy S/P cholecystectomy S/P shoulder surgery S/P subtotal thyroidectomy S/P tonsillectomy and adenoidectomy Family History (Updated 08/22/19 @ 09:15 by Dary Mitchell LPN) CAD (coronary artery disease) Psychiatric illness Lung disease Cancer Hypertension Social History Quit status (tobacco): has quit using tobacco Year quit tobacco: 2002 [id number] Second hand smoke exposure: Yes Smoking risk assessment/counseling performed?: Yes Alcohol intake: former Former alcohol use details: 12 PACK OF BEER PER DAY AND 8-10 SHOTS OF WHISKEY DAILY Lives independently: Yes Household members: none Housing: House Marital status: Current occupational status: retired Pets and animals: Yes History of recent travel: No Current gender identity: Female Pertinent Exam Findings alert, regular rate & rhythm and procedure specific exam findings (Abdominal examination NT ND Soft) Recommendations Surgery/Procedure today (Colonoscopy with possible bx ) Coding Level of Care Code Acute [employer] for Mireille Pineda
[2021-07-08 11:28] VITALS: BP 104/67; PULSE 76; RESP 18; TEMP 36.1; O2SAT 92
--- NOTE | 2021-07-08 11:35 | ANE.PACU2 ---
Inpatient post-anesthesia follow up: Airway intact: Yes Vital signs: Temperature 97 F Pulse Rate 76 Respiratory Rate 18 Blood Pressure 104/67 Pulse Oximetry 92 Oxygen Delivery Me thod Nasal Cannula Oxygen Flow Rate 4 Fraction of Inspir ed Oxygen Hydration adequate: Yes Mental status: Baseline
[2021-07-08 11:38] VITALS: BP 93/61; PULSE 78; RESP 18; O2SAT 96
== END 2021-07-08 11:59 | disposition home or self-care (01) ==
PROVIDERS: PCP Family Medicine; Visit Provider Surgery
PROC: 0DJD8ZZ Inspection of Lower Intestinal Tract, Via Natural or Artificial Opening Endoscopic (ICD-10-PCS; CPT 45378; principal; 2021-07-08 11:00)
DX: Z12.11 Encounter for screening for malignant neoplasm of colon (principal); K57.30 Diverticulosis of large intestine without perforation or abscess without bleeding; J44.9 Chronic obstructive pulmonary disease, unspecified; I10 Essential (primary) hypertension; K21.9 Gastro-esophageal reflux disease without esophagitis; E03.9 Hypothyroidism, unspecified; F41.1 Generalized anxiety disorder; F43.12 Post-traumatic stress disorder, chronic; G47.33 Obstructive sleep apnea (adult) (pediatric); Z87.891 Personal history of nicotine dependence; Z79.82 Long term (current) use of aspirin
CPT/HCPCS: 96360; 96361; G0121; J2704; J7030

== ENCOUNTER 2021-09-06 12:23 | Outpatient (CLI) | payer MEDICARE, SELFPAY ==
[2021-09-06 13:36] LABS: Basophils % 0.3 %; Eosinophils # 0.3 10^3/uL (0.0-0.8); Eosinophils % 3.4 %; Hematocrit 36.1 % (37.0-47.0); Hemoglobin 11.5 g/dL (11.5-15.3); Lymphocytes # 2.9 10^3/uL (0.8-4.8); Lymphocytes % 30.9 %; Mean Corpuscular HGB Conc 31.9 g/dL (30.0-36.0); Mean Corpuscular Hemoglobin 29.3 pg (28.0-34.0); Mean Corpuscular Volume 91.9 fl (81-99); Monocytes # 0.6 10^3/uL (0.2-0.9); Monocytes % 6.2 %; Neutrophils # 5.44 10^3/uL (1.8-7.7); Neutrophils % 58.3 %; Nucleated Red Blood Cells % 0 %; Platelet Count 344 10^3/cmm (130-400); Red Blood Count 3.93 10^6/uL (4.1-5.3); Red Cell Distribution Width 13.9 % (12.1-15.1); White Blood Count 9.3 10^3/uL (4.0-10.0)
[2021-09-06 14:14] LABS: Estmated Average Glucose 148; Hemoglobin A1C 6.8 % (4.0-6.0)
[2021-09-06 14:16] LABS: Alanine Aminotransferase 17 U/L (0-33); Albumin Level 4.4 g/dL (3.5-5.2); Alkaline Phosphatase 106 IU/L (35-105); Anion Gap 17.2 (5-19); Aspartate Amino Transferase 16 U/L (0-32); Blood Urea Nitrogen 9 mg/dL (8-23); Calcium 9.8 mg/dL (8.5-10.5); Carbon Dioxide 24 mmol/L (22-29); Chloride 99 mmol/L (98-107); Globulin 2.5 g/dL (1.3-4.6); Glomerular Filtration Rate 71.5 mL/min (90-130); Glucose 141 mg/dL (65-115); Osmolality Calculated 283 mOsm/kg (285-295); Potassium 4.2 mmol/L (3.5-5.1); Sodium 136 mmol/L (136-145); Total Bilirubin 0.2 mg/dL (0.15-1.2); Total Protein 6.9 g/dL (6.6-8.7)
== END 2021-09-06 12:24 | disposition home or self-care (01) ==
PROVIDERS: Nurse Practitioner Family; PCP Family Medicine; Visit Provider Internal Medicine Hematology & Oncology
DX: D05.12 Intraductal carcinoma in situ of left breast (principal); Z17.0 Estrogen receptor positive status [ER+]; Z90.12 Acquired absence of left breast and nipple; E55.9 Vitamin D deficiency, unspecified; Z79.818 Long term (current) use of other agents affecting estrogen receptors and estrogen levels; Z79.899 Other long term (current) drug therapy
CPT/HCPCS: 36415; 80053; 83036; 85025; 99214

== ENCOUNTER → 2021-10-04 12:05 | Outpatient (BNVA) | payer MEDICARE, SELFPAY | PROVIDERS: PCP Family Medicine; Visit Provider Family Medicine | DX: E11.9 Type 2 diabetes mellitus without complications (principal); I10 Essential (primary) hypertension; R10.31 Right lower quadrant pain; N39.3 Stress incontinence (female) (male) | CPT/HCPCS: 80053; 81003; 83036; 87086 ==

== ENCOUNTER → 2021-12-01 09:21 | Outpatient (BNVA) | payer MEDICARE, SELFPAY | PROVIDERS: PCP Family Medicine; Visit Provider Internal Medicine Pulmonary Disease | DX: J43.1 Panlobular emphysema (principal); D05.12 Intraductal carcinoma in situ of left breast; Z87.891 Personal history of nicotine dependence; I10 Essential (primary) hypertension; K21.9 Gastro-esophageal reflux disease without esophagitis; E03.9 Hypothyroidism, unspecified | CPT/HCPCS: 99214 ==

== ENCOUNTER 2022-02-21 09:41 | Oncology outpatient (recurring) (ONCR) | payer MEDICARE, SELFPAY ==
[2022-02-21 10:14] LABS: Basophils % 0.3 %; Eosinophils # 0.2 10^3/uL (0.0-0.8); Eosinophils % 2.4 %; Hematocrit 36.6 % (37.0-47.0); Hemoglobin 11.5 g/dL (11.5-15.3); Lymphocytes # 2.8 10^3/uL (0.8-4.8); Lymphocytes % 29.7 %; Mean Corpuscular HGB Conc 31.4 g/dL (30.0-36.0); Mean Corpuscular Hemoglobin 28.3 pg (28.0-34.0); Mean Corpuscular Volume 89.9 fl (81-99); Mean Platelet Volume 9.9 fL (7.4-10.4); Monocytes # 0.6 10^3/uL (0.2-0.9); Monocytes % 6.1 %; Neutrophils # 5.66 10^3/uL (1.8-7.7); Nucleated Red Blood Cells % 0 %; Platelet Count 405 10^3/cmm (130-400); Red Blood Count 4.07 10^6/uL (4.1-5.3); Red Cell Distribution Width 13.6 % (12.1-15.1); White Blood Count 9.3 10^3/uL (4.0-10.0)
[2022-02-21 10:43] LABS: Alanine Aminotransferase 15 U/L (0-33); Albumin Level 4.8 g/dL (3.5-5.2); Alkaline Phosphatase 115 IU/L (35-105); Anion Gap 12.2 (5-19); Aspartate Amino Transferase 16 U/L (0-32); Blood Urea Nitrogen 7 mg/dL (8-23); Calcium 9.9 mg/dL (8.5-10.5); Carbon Dioxide 30 mmol/L (22-29); Chloride 99 mmol/L (98-107); Glomerular Filtration Rate 62.5 mL/min (90-130); Glucose 106 mg/dL (65-115); Osmolality Calculated 282 mOsm/kg (285-295); Potassium 4.2 mmol/L (3.5-5.1); Sodium 137 mmol/L (136-145); Total Bilirubin 0.3 mg/dL (0.15-1.2); Total Protein 7.8 g/dL (6.6-8.7)
== END 2022-02-26 23:59 | disposition home or self-care (01) ==
PROVIDERS: PCP Family Medicine; Visit Provider Internal Medicine Hematology & Oncology
DX: D05.12 Intraductal carcinoma in situ of left breast (principal); Z79.818 Long term (current) use of other agents affecting estrogen receptors and estrogen levels
CPT/HCPCS: 80053; 85025; 99214

== ENCOUNTER → 2022-03-02 10:18 | Outpatient (BNVA) | payer MEDICARE, SELFPAY | PROVIDERS: PCP Family Medicine; Visit Provider Family Medicine | DX: E11.9 Type 2 diabetes mellitus without complications (principal); I10 Essential (primary) hypertension; K21.9 Gastro-esophageal reflux disease without esophagitis; E03.9 Hypothyroidism, unspecified | CPT/HCPCS: 80061; 83036 ==

== ENCOUNTER 2022-04-04 06:00 | Outpatient (RCR) | payer MEDICARE, SELFPAY | END 2022-04-28 23:59 | disposition home or self-care (01) | LOC: MPT 06:00 | PROVIDERS: PCP Family Medicine; Visit Provider Orthopaedic Surgery | DX: M25.562 Pain in left knee (principal); Z47.89 Encounter for other orthopedic aftercare | CPT/HCPCS: 97110; 97140; 97161; G0283 ==

== ENCOUNTER 2022-04-29 06:00 | Outpatient (RCR) | payer MEDICARE, SELFPAY | END 2022-05-29 23:59 | disposition home or self-care (01) | LOC: MPT 06:00 | PROVIDERS: PCP Family Medicine; Visit Provider Orthopaedic Surgery | DX: M17.12 Unilateral primary osteoarthritis, left knee (principal) | CPT/HCPCS: 97110 ==

== ENCOUNTER → 2022-06-01 09:16 | Outpatient (BNVA) | payer MEDICARE, SELFPAY | PROVIDERS: PCP Family Medicine; Visit Provider Internal Medicine Pulmonary Disease | DX: R06.02 Shortness of breath (principal); J43.1 Panlobular emphysema; D05.12 Intraductal carcinoma in situ of left breast; Z79.811 Long term (current) use of aromatase inhibitors; Z87.891 Personal history of nicotine dependence; G47.33 Obstructive sleep apnea (adult) (pediatric) | CPT/HCPCS: 99214 ==

== ENCOUNTER → 2022-06-08 10:21 | Outpatient (BNVA) | payer MEDICARE, SELFPAY | PROVIDERS: PCP Family Medicine; Visit Provider Family Medicine | DX: E11.9 Type 2 diabetes mellitus without complications (principal); E03.9 Hypothyroidism, unspecified | CPT/HCPCS: 80053; 82043; 83036; 84443 ==

== ENCOUNTER 2022-07-13 14:28 | Outpatient (CLI) | payer MEDICARE, SELFPAY ==
--- NOTE | 2022-07-13 14:36 | MM_ITS ---
WS: [email or web address] BILATERAL 3D TOMOSYNTHESIS DIGITAL DIAGNOSTIC MAMMOGRAPHY WITH CAD CLINICAL INFORMATION: Compare to last HISTORY: History of bilateral breast reduction and LEFT breast cancer COMPARISON: July 01, 2021 TECHNIQUE: Bilateral CC, MLO, and ML views. FINDINGS: History of bilateral breast reduction. Scattered fibroglandular densities bilaterally. Postoperative changes lumpectomy LEFT breast with sherly gical clips. A few incidental punctate calcifications. No suspicious focal mass, asymmetry, calcifications, or architectural distortion. No evidence of reno gnancy. MM/[place] [id number] IMPRESSION: BI-RADS: 2-Benign FOLLOW UP: 1 Year Follow-up Recommend return to annual diagnostic mammography.
== END 2022-07-13 14:29 | disposition home or self-care (01) ==
PROVIDERS: PCP Family Medicine; Visit Provider Internal Medicine Hematology & Oncology
DX: Z85.3 Personal history of malignant neoplasm of breast (principal)
CPT/HCPCS: 77062; G0279

== ENCOUNTER 2022-09-05 12:46 | Oncology outpatient (recurring) (ONCR) | payer MEDICARE, SELFPAY ==
[2022-09-05 13:06] LABS: Basophils % 0.4 %; Eosinophils # 0.3 10^3/uL (0.0-0.8); Eosinophils % 2.7 %; Hematocrit 36.6 % (37.0-47.0); Hemoglobin 11.2 g/dL (11.5-15.3); Lymphocytes # 3.5 10^3/uL (0.8-4.8); Lymphocytes % 31.3 %; Mean Corpuscular HGB Conc 30.6 g/dL (30.0-36.0); Mean Corpuscular Hemoglobin 25.9 pg (28.0-34.0); Mean Corpuscular Volume 84.5 fl (81-99); Mean Platelet Volume 10.7 fL (7.4-10.4); Monocytes # 0.9 10^3/uL (0.2-0.9); Monocytes % 8.2 %; Neutrophils % 56.8 %; Nucleated Red Blood Cells % 0 %; Platelet Count 426 10^3/cmm (130-400); Red Blood Count 4.33 10^6/uL (4.1-5.3); Red Cell Distribution Width 15.7 % (12.1-15.1); White Blood Count 11.1 10^3/uL (4.0-10.0)
[2022-09-05 13:24] LABS: Alanine Aminotransferase 18 U/L (0-33); Albumin Level 4.4 g/dL (3.5-5.2); Alkaline Phosphatase 131 U/L (35-105); Anion Gap 12.8 (5-19); Aspartate Amino Transferase 18 U/L (0-32); Blood Urea Nitrogen 13 mg/dL (8-23); Calcium 9.7 mg/dL (8.5-10.5); Carbon Dioxide 31 mmol/L (22-29); Chloride 97 mmol/L (98-107); Globulin 3.1 g/dL (1.3-4.6); Glomerular Filtration Rate 71.3 mL/min (90-130); Glucose 80 mg/dL (65-115); Osmolality Calculated 283 mOsm/kg (285-295); Potassium 3.8 mmol/L (3.5-5.1); Sodium 137 mmol/L (136-145); Total Bilirubin 0.3 mg/dL (0.15-1.2); Total Protein 7.5 g/dL (6.6-8.7)
[2022-09-05 15:28] LABS: Ferritin 15 ng/mL (15-150); Iron 33 ug/dL (37-145); Percent Saturation 8.4 % (20-50); Total Iron Binding Capacity 392 mcg/dl; Unsaturated Iron Binding 359 ug/dL (112-347)
== END 2022-09-26 23:59 | disposition home or self-care (01) ==
PROVIDERS: PCP Family Medicine; Visit Provider Internal Medicine Hematology & Oncology
DX: D05.12 Intraductal carcinoma in situ of left breast (principal); D64.9 Anemia, unspecified; D75.839 Thrombocytosis, unspecified; Z79.811 Long term (current) use of aromatase inhibitors; Z79.899 Other long term (current) drug therapy
CPT/HCPCS: 80053; 82728; 83540; 83550; 85025; 99214

== ENCOUNTER 2022-09-13 12:36 | Outpatient (CLI) | payer MEDICARE, SELFPAY ==
--- NOTE | 2022-09-13 14:00 | XR_ITS ---
WS: [id number] DEXA (DUAL ENERGY X-RAY ABSORPTIOMETRY) Bone mineral density was performed using a [employer] machine. HISTORY: Follow up COMPARISON: 10/26/2017 Lumbar spine BMD (L1-L4): 1.222 g/cm2 T score: 0.3 Z score: 1.2 Total hip BMD: Left: 1.092 g/cm2. T score: 0.7 Z score: 1.4 Right: 1.126 g/cm2. T score: 0.9 Z score: 1.7 10 year probability of a major osteoporotic fracture is 11.9%. Compared to the prior study from 10/26/2018. Lumbar spine bone mineral density has increased by 1.2%. Bilateral hips bone mineral density has increased by 0.9%. XR/XR DEXA axial skeleton* [id number] IMPRESSION: NORMAL BONE MINERAL DENSITY based upon the WHO classification for females. No s ignificant change in bone mineral density since the prior study.
== END 2022-09-13 12:37 | disposition home or self-care (01) ==
LOC: RAD 12:39
PROVIDERS: PCP Family Medicine; Visit Provider Internal Medicine Hematology & Oncology
DX: D05.12 Intraductal carcinoma in situ of left breast (principal); Z79.811 Long term (current) use of aromatase inhibitors
CPT/HCPCS: 77080

== ENCOUNTER → 2022-11-27 09:29 | Outpatient (BNVA) | payer MEDICARE, SELFPAY | PROVIDERS: PCP Family Medicine; Visit Provider Internal Medicine Pulmonary Disease | DX: J43.1 Panlobular emphysema (principal); D05.12 Intraductal carcinoma in situ of left breast; G47.33 Obstructive sleep apnea (adult) (pediatric); Z87.891 Personal history of nicotine dependence | CPT/HCPCS: 99214 ==

== ENCOUNTER → 2022-12-07 11:13 | Outpatient (BNVA) | payer MEDICARE, SELFPAY | PROVIDERS: PCP Family Medicine; Visit Provider Family Medicine | DX: D64.9 Anemia, unspecified (principal); D50.9 Iron deficiency anemia, unspecified; E11.9 Type 2 diabetes mellitus without complications | CPT/HCPCS: 82728; 83036; 83550; 84443; 85025 ==

== ENCOUNTER 2023-03-06 11:57 | Oncology outpatient (recurring) (ONCR) | payer MEDICARE, SELFPAY ==
[2023-03-06 13:09] VITALS: BP 105/70; PULSE 77; RESP 16; TEMP 36.6; O2SAT 91
[2023-03-06 13:25] LABS: Basophils % 0.2 %; Eosinophils # 0.6 10^3/uL (0.0-0.8); Eosinophils % 4.8 %; Hematocrit 37.2 % (37.0-47.0); Hemoglobin 11.9 g/dL (11.5-15.3); Lymphocytes # 4.8 10^3/uL (0.8-4.8); Lymphocytes % 38.9 %; Mean Corpuscular Hemoglobin 28.5 pg (28.0-34.0); Mean Platelet Volume 9.8 fL (7.4-10.4); Monocytes % 7.7 %; Neutrophils # 5.95 10^3/uL (1.8-7.7); Nucleated Red Blood Cells % 0 %; Platelet Count 346 10^3/cmm (130-400); Red Blood Count 4.18 10^6/uL (4.1-5.3); Red Cell Distribution Width 14.4 % (12.1-15.1); White Blood Count 12.4 10^3/uL (4.0-10.0)
[2023-03-06 13:52] LABS: Alanine Aminotransferase 12 U/L (0-33); Albumin Level 4.3 g/dL (3.5-5.2); Alkaline Phosphatase 112 U/L (35-105); Anion Gap 14.8 (5-19); Aspartate Amino Transferase 17 U/L (0-32); Blood Urea Nitrogen 8 mg/dL (8-23); Calcium 9.9 mg/dL (8.5-10.5); Carbon Dioxide 29 mmol/L (22-29); Chloride 100 mmol/L (98-107); Globulin 3.1 g/dL (1.3-4.6); Glomerular Filtration Rate 62.3 mL/min (90-130); Glucose 80 mg/dL (65-115); Osmolality Calculated 285 mOsm/kg (285-295); Potassium 4.8 mmol/L (3.5-5.1); Sodium 139 mmol/L (136-145); Total Bilirubin 0.2 mg/dL (0.15-1.2); Total Protein 7.4 g/dL (6.6-8.7)
== END 2023-03-29 23:59 | disposition home or self-care (01) ==
PROVIDERS: Nurse Practitioner Family; PCP Family Medicine; Visit Provider Internal Medicine Hematology & Oncology
DX: D05.12 Intraductal carcinoma in situ of left breast (principal); D50.9 Iron deficiency anemia, unspecified; Z79.811 Long term (current) use of aromatase inhibitors; Z79.899 Other long term (current) drug therapy; Z87.891 Personal history of nicotine dependence
CPT/HCPCS: 36415; 80053; 85025; 99213

== ENCOUNTER → 2023-06-07 11:41 | Outpatient (BNVA) | payer MEDICARE, SELFPAY | PROVIDERS: PCP Family Medicine; Visit Provider Family Medicine | DX: F31.81 Bipolar II disorder (principal); Z13.6 Encounter for screening for cardiovascular disorders; Z11.59 Encounter for screening for other viral diseases; E11.9 Type 2 diabetes mellitus without complications | CPT/HCPCS: 80061; 83036; 84443; 86803 ==

== ENCOUNTER 2023-07-16 12:52 | Outpatient (CLI) | payer MEDICARE, SELFPAY ==
--- NOTE | 2023-07-16 13:18 | MM_ITS ---
WS: [id number] Bilateral diagnostic 3D tomosynthesis digital mammogram, 07/16/2023 Clinical Data: Annual Comparison: 07/13/2022, 07/01/2021, 05/25/2020, 04/28/2019, 04/26/2018, 03/28/2017, 11/03/2014, 01/16/2011, 09/22/2009, 11/02/2008, 01/30/2008, 05/06/2007. Findings: The breast parenchymal pattern shows fibroglandular tissue. There are postoperative surgical clips in the middle of the left breast unchanged. No spiculated masses nor clustered calcifications are seen. Impression: 1. Negative right breast mammogram. 2. Negative left breast mammogram with postoperative changes. 3. Recommend annual mammograms MM/[place] [id number] BIRADS: 2-Benign FOLLOW UP: 1 Year Follow-up The CAD receiving checker was used.
== END 2023-07-16 12:53 | disposition home or self-care (01) ==
LOC: RAD 12:52
PROVIDERS: PCP Family Medicine; Visit Provider Internal Medicine Medical Oncology
DX: D05.12 Intraductal carcinoma in situ of left breast (principal)
CPT/HCPCS: 77062; G0279

== ENCOUNTER 2023-08-29 12:55 | Outpatient (CLI) | payer MEDICARE, SELFPAY ==
--- NOTE | 2023-08-29 13:30 | XR_ITS ---
WS: [id number] DEXA (DUAL ENERGY X-RAY ABSORPTIOMETRY) Bone mineral density was performed using a [employer] machine. HISTORY: follow up COMPARISON: 09/13/2022 Lumbar spine BMD (L1-L4): 1.247 g/cm2 T score: 0.6 Z score: 1.1 Total hip BMD: Left: 1.087 g/cm2. T score: 0.6 Z score: 1.3 Right: 1.093 g/cm2. T score: 0.7 Z score: 1.3 10 year probability of a major osteoporotic fracture is 11.8%. Compared to the prior study from 09/13/2022. Lumbar spine bone mineral density has increased by 2.0%. Bilateral hips bone mineral density has decreased by 1.7%. IMPRESSION: NORMAL BONE MINERAL DENSITY based upon the WHO classification for females. Minimal increase in bone mineral density within the lumbar spine. No significant change within the hi ps.
== END 2023-08-29 12:56 | disposition home or self-care (01) ==
LOC: RAD 12:55
PROVIDERS: PCP Family Medicine; Visit Provider Internal Medicine Medical Oncology
DX: Z79.811 Long term (current) use of aromatase inhibitors (principal)
CPT/HCPCS: 77080

== ENCOUNTER → 2023-08-30 08:43 | Outpatient (BNVA) | payer MEDICARE, SELFPAY | PROVIDERS: PCP Family Medicine; Visit Provider Internal Medicine Pulmonary Disease | DX: Z12.2 Encounter for screening for malignant neoplasm of respiratory organs (principal); J43.1 Panlobular emphysema; D05.12 Intraductal carcinoma in situ of left breast; G47.33 Obstructive sleep apnea (adult) (pediatric); Z87.891 Personal history of nicotine dependence | CPT/HCPCS: 99214 ==

== ENCOUNTER 2023-09-05 11:26 | Oncology outpatient (recurring) (ONCR) | payer MEDICARE, MEDICAID, SELFPAY ==
[2023-09-05 11:43] LABS: Basophils % 0.4 %; Eosinophils # 0.3 10^3/uL (0.0-0.8); Eosinophils % 2.7 %; Hematocrit 38.7 % (36-47); Lymphocytes # 2.7 10^3/uL (0.8-4.8); Mean Corpuscular HGB Conc 32.3 g/dL (30-55); Mean Corpuscular Hemoglobin 29.6 pg (27-33); Mean Corpuscular Volume 91.7 fl (85-98); Mean Platelet Volume 9.9 fL (7.4-10.4); Monocytes # 0.7 10^3/uL (0.2-0.9); Monocytes % 7.4 %; Neutrophils # 5.92 10^3/uL (1.8-7.7); Neutrophils % 60.7 %; Nucleated Red Blood Cells % 0 %; Platelet Count 348 10^3/cmm (157-399); Red Blood Count 4.22 10^6/uL (3.85-5.65); Red Cell Distribution Width 13.6 % (12.1-15.1); White Blood Count 9.75 10^3/uL (3.29-11.43)
[2023-09-05 12:00] LABS: Alanine Aminotransferase 17 U/L (0-33); Albumin Level 4.1 g/dL (3.5-5.2); Alkaline Phosphatase 111 U/L (35-105); Aspartate Amino Transferase 15 U/L (0-32); Blood Urea Nitrogen 7 mg/dL (8-23); Calcium 9.5 mg/dL (8.5-10.5); Carbon Dioxide 29 mmol/L (22-29); Chloride 99 mmol/L (98-107); Globulin 3.4 g/dL (1.3-4.6); Glomerular Filtration Rate 62.1 mL/min (90-130); Glucose 127 mg/dL (65-115); Osmolality Calculated 282 mOsm/kg (285-295); Sodium 136 mmol/L (136-145); Total Bilirubin 0.3 mg/dL (0.15-1.2); Total Protein 7.5 g/dL (6.6-8.7)
== END 2023-09-27 23:59 | disposition home or self-care (01) ==
PROVIDERS: Internal Medicine Medical Oncology; PCP Family Medicine; Visit Provider Internal Medicine Hematology & Oncology
DX: D05.12 Intraductal carcinoma in situ of left breast (principal); Z79.811 Long term (current) use of aromatase inhibitors; Z79.899 Other long term (current) drug therapy; Z92.3 Personal history of irradiation; Z53.9 Procedure and treatment not carried out, unspecified reason
CPT/HCPCS: 36415; 80053; 85025; 99214

== ENCOUNTER → 2024-01-07 10:56 | Outpatient (BNVA) | payer MEDICARE, SELFPAY | PROVIDERS: PCP Family Medicine; Visit Provider Family Medicine | DX: Z13.6 Encounter for screening for cardiovascular disorders (principal); E03.9 Hypothyroidism, unspecified; E11.9 Type 2 diabetes mellitus without complications | CPT/HCPCS: 80053; 83036; 84443 ==

== ENCOUNTER 2024-03-19 13:05 | Oncology outpatient (recurring) (ONCR) | payer MEDICARE, SELFPAY ==
[2024-03-19 13:34] LABS: Basophils % 0.4 %; Eosinophils # 0.5 10^3/uL (0.0-0.8); Eosinophils % 4.7 %; Hematocrit 35.3 % (36-47); Lymphocytes # 2.2 10^3/uL (0.8-4.8); Mean Corpuscular HGB Conc 32.3 g/dL (30-55); Mean Corpuscular Hemoglobin 28.6 pg (27-33); Mean Corpuscular Volume 88.5 fl (85-98); Mean Platelet Volume 10.7 fL (7.4-10.4); Monocytes # 0.9 10^3/uL (0.2-0.9); Monocytes % 8.8 %; Neutrophils # 6.74 10^3/uL (1.8-7.7); Neutrophils % 64.6 %; Nucleated Red Blood Cells % 0 %; Platelet Count 299 10^3/cmm (157-399); Red Blood Count 3.99 10^6/uL (3.85-5.65); Red Cell Distribution Width 13.6 % (12.1-15.1); White Blood Count 10.43 10^3/uL (3.29-11.43)
[2024-03-19 13:45] LABS: Alanine Aminotransferase 10 U/L (0-33); Albumin Level 4.1 g/dL (3.5-5.2); Alkaline Phosphatase 121 U/L (35-105); Anion Gap 14.1 (5-19); Aspartate Amino Transferase 13 U/L (0-32); Blood Urea Nitrogen 8 mg/dL (8-23); Calcium 9.1 mg/dL (8.5-10.5); Carbon Dioxide 26 mmol/L (22-29); Chloride 101 mmol/L (98-107); Globulin 3.1 g/dL (1.3-4.6); Glomerular Filtration Rate 62.1 mL/min (90-130); Glucose 128 mg/dL (65-115); Osmolality Calculated 284 mOsm/kg (285-295); Potassium 4.1 mmol/L (3.5-5.1); Sodium 137 mmol/L (136-145); Total Bilirubin 0.3 mg/dL (0.15-1.2); Total Protein 7.2 g/dL (6.6-8.7)
[2024-03-19 16:36] LABS: Iron 43 ug/dL (37-145); Percent Saturation 14.1 % (20-50); Total Iron Binding Capacity 303 mcg/dl; Unsaturated Iron Binding 260 ug/dL (112-347)
[2024-03-19 17:01] LABS: Estmated Average Glucose 128; Hemoglobin A1C 6.1 % (4.0-6.0)
== END 2024-03-29 23:59 | disposition home or self-care (01) ==
PROVIDERS: Visit Provider Internal Medicine Medical Oncology
DX: D05.12 Intraductal carcinoma in situ of left breast (principal); E11.9 Type 2 diabetes mellitus without complications; D64.9 Anemia, unspecified; Z79.811 Long term (current) use of aromatase inhibitors; Z79.899 Other long term (current) drug therapy; Z92.3 Personal history of irradiation
CPT/HCPCS: 36415; 80053; 83036; 83540; 83550; 85025; 99214

== ENCOUNTER 2024-07-31 10:48 | Oncology outpatient (recurring) (ONCR) | payer MEDICARE, SELFPAY ==
--- NOTE | 2024-07-31 11:30 | MM_ITS ---
WS: [email or web address] BILATERAL 3D TOMOSYNTHESIS DIGITAL DIAGNOSTIC MAMMOGRAPHY WITH CAD CLINICAL INFORMATION: compare to previous HISTORY: History of LEFT breast cancer COMPARISON: 2022 TECHNIQUE: Bilateral CC, MLO, and ML views. FINDINGS: Scattered fibroglandular densities bilaterally. Postoperative changes LEFT lumpectomy with surgical c lips. This is similar to previous. Treatment-related changes LEFT breast. Few incidental punctate lisa cifications bilaterally. No suspicious focal mass, asymmetry, calcifications, or architectural distortion. No evidence of reno gnancy. MM/MM diag tomosynthesis [id number] IMPRESSION: DENSITY: There are scattered areas of fibroglandular density. BI-RADS: 2 - Benign. FOLLOW UP: 1 Year Follow-up Recommend return to annual diagnostic mammography.
== END 2024-08-29 23:59 | disposition home or self-care (01) ==
LOC: RAD 12:31 → ONCMED 08-01 09:14
PROVIDERS: PCP Family Medicine; Visit Provider Nurse Practitioner Family
DX: D05.12 Intraductal carcinoma in situ of left breast (principal); E11.9 Type 2 diabetes mellitus without complications; D64.9 Anemia, unspecified; Z79.811 Long term (current) use of aromatase inhibitors; Z79.899 Other long term (current) drug therapy; Z92.3 Personal history of irradiation; Z53.9 Procedure and treatment not carried out, unspecified reason
CPT/HCPCS: 77062; G0279

== ENCOUNTER 2024-09-18 12:18 | Oncology outpatient (recurring) (ONCR) | payer MEDICARE, SELFPAY ==
[2024-09-18 12:51] LABS: Basophils # 0.1 10^3/uL (0.0-0.1); Basophils % 0.5 %; Eosinophils # 0.2 10^3/uL (0.0-0.8); Hematocrit 37.2 % (36-47); Lymphocytes # 2.7 10^3/uL (0.8-4.8); Lymphocytes % 25.1 %; Mean Corpuscular HGB Conc 32.5 g/dL (30-55); Mean Corpuscular Hemoglobin 28.6 pg (27-33); Mean Corpuscular Volume 87.9 fl (85-98); Mean Platelet Volume 10.5 fL (7.4-10.4); Monocytes # 0.9 10^3/uL (0.2-0.9); Monocytes % 8.2 %; Neutrophils # 6.92 10^3/uL (1.8-7.7); Neutrophils % 63.5 %; Nucleated Red Blood Cells % 0 %; Platelet Count 346 10^3/cmm (157-399); Red Blood Count 4.23 10^6/uL (3.85-5.65); Red Cell Distribution Width 13.4 % (12.1-15.1); White Blood Count 10.89 10^3/uL (3.29-11.43)
[2024-09-18 13:07] LABS: Alanine Aminotransferase 15 U/L (0-33); Albumin Level 4.3 g/dL (3.5-5.2); Alkaline Phosphatase 136 U/L (35-105); Anion Gap 13.3 (5-19); Aspartate Amino Transferase 13 U/L (0-32); Blood Urea Nitrogen 12 mg/dL (8-23); Calcium 8.9 mg/dL (8.5-10.5); Carbon Dioxide 29 mmol/L (22-29); Chloride 101 mmol/L (98-107); Creatinine Clr Calc Pharmacy 73.5226; Globulin 3.1 g/dL (1.3-4.6); Glomerular Filtration Rate 70.9 mL/min (90-130); Glucose 106 mg/dL (65-115); Osmolality Calculated 288 mOsm/kg (285-295); Potassium 4.3 mmol/L (3.5-5.1); Sodium 139 mmol/L (136-145); Total Bilirubin 0.3 mg/dL (0.15-1.2); Total Protein 7.4 g/dL (6.6-8.7)
== END 2024-09-26 23:59 | disposition home or self-care (01) ==
PROVIDERS: Internal Medicine Medical Oncology; PCP Family Medicine; Visit Provider Nurse Practitioner Family
DX: D05.12 Intraductal carcinoma in situ of left breast (principal); Z17.0 Estrogen receptor positive status [ER+]; D64.9 Anemia, unspecified; N95.2 Postmenopausal atrophic vaginitis; Z87.891 Personal history of nicotine dependence; Z92.3 Personal history of irradiation; Z79.811 Long term (current) use of aromatase inhibitors
CPT/HCPCS: 36415; 80053; 85025; 99214

== ENCOUNTER → 2024-11-25 15:08 | Outpatient (BNVA) | payer MEDICARE, SELFPAY | PROVIDERS: PCP Family Medicine; Visit Provider Family Medicine | DX: M54.9 Dorsalgia, unspecified (principal) | CPT/HCPCS: 81000 ==

== ENCOUNTER 2024-11-26 11:26 | Outpatient (CLI) | payer MEDICARE, SELFPAY ==
--- NOTE | 2024-11-26 11:40 | XR_ITS ---
WS: [email or web address] Lumbar spine, AP and lateral views, 11/26/2024 Clinical Data: M54.50 - Low back pain, unspecified Comparison: Lumbar spine, 06/19/2011 Findings: No compression fractures or subluxation is seen. There is degenerative disc narrowing at L3-L4. There is anterior spurring L3-L5. The transverse processes and SI joints are normal. There are cholecystectomy clips in the right upper quadrant. XR/XR lumbar spine 2-3V* [id number] Impression: 1. Degenerative disc narrowing at L3-L4. 2. Osteoarthritis L3-L5.
== END 2024-11-26 11:27 | disposition home or self-care (01) ==
PROVIDERS: PCP Family Medicine; Visit Provider Family Medicine
DX: M51.369 Other intervertebral disc degeneration, lumbar region without mention of lumbar back pain or lower extremity pain (principal); M47.896 Other spondylosis, lumbar region; Z90.49 Acquired absence of other specified parts of digestive tract
CPT/HCPCS: 72100

== ENCOUNTER 2024-12-12 14:12 | Outpatient (CLI) | payer MEDICARE, SELFPAY ==
--- NOTE | 2024-12-12 15:15 | MR_ITS ---
WS: [email or web address] MRI LUMBAR SPINE NONCONTRAST TECHNIQUE: Sagittal T1, T2 and STIR imaging. Axial T1 and T2 imaging. CLINICAL INFORMATION: M54.50 - Low back pain, unspecified COMPARISON: None. FINDINGS: Mild lumbar curve. No acute compression. Disc bulging worse at L3-4. Endplate Schmorl's node L4. L1-L2: Mild facet arthropathy. Spinal canal and foramen are patent. L2-L3: Mild facet arthropathy. Spinal canal and foramen are patent. L3-L4: Slight retrolisthesis. Central and RIGHT paracentral disc osteophyte protrusion with severe narrowing of the thecal sac. Impingement on the traversing L4 nerve roots. Mild bilateral foraminal narrowing. Moderate facet arthropathy. L4-L5: Mild annular bulging. Narrowing of the RIGHT subarticular recess. Mild foraminal narrowing. Moderate facet arthropathy. Mild central canal stenosis. L5-S1: Moderate facet arthropathy. Spinal canal and foramen are patent. Visualized pelvic bony structures: Normal. Paravertebral soft tissues: Normal. MR/MR lumbar spine wo con* [id number] IMPRESSION: 1. Central and RIGHT paracentral disc osteophyte protrusion L3-4 with severe n arrowing of the thecal sac. Impingement traversing RIGHT L4 nerve root. Slight retrolisthesis L3 on L4. 2. Mild central canal stenosis L4-5 with impingement on the traversing RIGHT L 5 nerve root. 3. Mild bilateral L3-4 foraminal narrowing. 4. Moderate facet arthropathy L3-L5.
== END 2024-12-12 14:13 | disposition home or self-care (01) ==
LOC: RAD 14:16
PROVIDERS: PCP Family Medicine; Visit Provider Family Medicine
DX: M54.16 Radiculopathy, lumbar region (principal); M47.816 Spondylosis without myelopathy or radiculopathy, lumbar region; R93.7 Abnormal findings on diagnostic imaging of other parts of musculoskeletal system; M51.26 Other intervertebral disc displacement, lumbar region; M25.78 Osteophyte, vertebrae; M48.061 Spinal stenosis, lumbar region without neurogenic claudication; M43.8X6 Other specified deforming dorsopathies, lumbar region; M47.896 Other spondylosis, lumbar region; M51.369 Other intervertebral disc degeneration, lumbar region without mention of lumbar back pain or lower extremity pain; M51.46 Schmorl's nodes, lumbar region; M47.897 Other spondylosis, lumbosacral region
CPT/HCPCS: 72148

== ENCOUNTER 2024-12-16 12:04 | Oncology outpatient (recurring) (ONCR) | payer MEDICARE, SELFPAY ==
[2024-12-16 12:40] LABS: Basophils % 0.4 %; Eosinophils # 0.3 10^3/uL (0.0-0.8); Eosinophils % 3.2 %; Lymphocytes # 2.9 10^3/uL (0.8-4.8); Lymphocytes % 30.7 %; Mean Corpuscular HGB Conc 31.7 g/dL (30-55); Mean Corpuscular Hemoglobin 28.6 pg (27-33); Mean Corpuscular Volume 90.2 fl (85-98); Mean Platelet Volume 10.4 fL (7.4-10.4); Monocytes # 0.9 10^3/uL (0.2-0.9); Monocytes % 9.5 %; Neutrophils # 5.31 10^3/uL (1.8-7.7); Neutrophils % 55.7 %; Nucleated Red Blood Cells % 0 %; Platelet Count 322 10^3/cmm (157-399); Red Blood Count 3.99 10^6/uL (3.85-5.65); Red Cell Distribution Width 13.4 % (12.1-15.1); White Blood Count 9.55 10^3/uL (3.29-11.43)
[2024-12-16 13:05] LABS: Alanine Aminotransferase 11 U/L (0-33); Albumin Level 4.2 g/dL (3.5-5.2); Alkaline Phosphatase 101 U/L (35-105); Anion Gap 14.3 (5-19); Aspartate Amino Transferase 11 U/L (0-32); Blood Urea Nitrogen 10 mg/dL (8-23); Calcium 9.6 mg/dL (8.5-10.5); Carbon Dioxide 27 mmol/L (22-29); Chloride 100 mmol/L (98-107); Creatinine Clr Calc Pharmacy 65.1867; Globulin 2.9 g/dL (1.3-4.6); Glomerular Filtration Rate 61.9 mL/min (90-130); Glucose 82 mg/dL (65-115); Osmolality Calculated 282 mOsm/kg (285-295); Potassium 4.3 mmol/L (3.5-5.1); Sodium 137 mmol/L (136-145); Total Bilirubin 0.2 mg/dL (0.15-1.2); Total Protein 7.1 g/dL (6.6-8.7)
== END 2024-12-27 23:59 | disposition home or self-care (01) ==
PROVIDERS: Nurse Practitioner; PCP Family Medicine; Visit Provider Nurse Practitioner Family
DX: D05.12 Intraductal carcinoma in situ of left breast (principal); Z17.0 Estrogen receptor positive status [ER+]; I10 Essential (primary) hypertension; Z92.3 Personal history of irradiation; Z79.811 Long term (current) use of aromatase inhibitors; M54.50 Low back pain, unspecified; Z87.891 Personal history of nicotine dependence; M25.559 Pain in unspecified hip
CPT/HCPCS: 36415; 80053; 85025; 99214

== ENCOUNTER 2024-12-28 05:00 | Outpatient (RCR) | payer MEDICARE, SELFPAY | END 2025-01-26 23:59 | disposition home or self-care (01) | LOC: MPT 05:00 | PROVIDERS: PCP Family Medicine; Visit Provider Anesthesiology Pain Medicine | DX: M51.16 Intervertebral disc disorders with radiculopathy, lumbar region (principal) | CPT/HCPCS: 97110; 97140; 97162; G0283 ==

== ENCOUNTER → 2024-12-29 09:19 | Outpatient (BNVA) | payer MEDICARE, SELFPAY | PROVIDERS: PCP Family Medicine; Referring Provider Family Medicine; Visit Provider Anesthesiology Pain Medicine | DX: M54.9 Dorsalgia, unspecified (principal); M51.16 Intervertebral disc disorders with radiculopathy, lumbar region | CPT/HCPCS: 99204 ==

== ENCOUNTER 2025-01-27 05:00 | Outpatient (RCR) | payer MEDICARE, SELFPAY | END 2025-02-26 23:59 | disposition home or self-care (01) | LOC: MPT 05:00 | PROVIDERS: PCP Family Medicine; Visit Provider Anesthesiology Pain Medicine | DX: M54.16 Radiculopathy, lumbar region (principal) | CPT/HCPCS: 97110; 97140; G0283 ==

== ENCOUNTER → 2025-01-28 11:00 | Outpatient (BNVA) | payer MEDICARE, SELFPAY | PROVIDERS: PCP Family Medicine; Visit Provider Family Medicine | DX: E03.9 Hypothyroidism, unspecified (principal); E11.9 Type 2 diabetes mellitus without complications | CPT/HCPCS: 80061; 83036; 84439; 84443; 84481 ==

== ENCOUNTER → 2025-02-03 09:40 | Outpatient (BNVA) | payer MEDICARE, SELFPAY | PROVIDERS: PCP Family Medicine; Visit Provider Anesthesiology Pain Medicine | DX: M54.9 Dorsalgia, unspecified (principal); M51.16 Intervertebral disc disorders with radiculopathy, lumbar region | CPT/HCPCS: 99214 ==

== ENCOUNTER → 2025-02-11 14:37 | Outpatient (BNVA) | payer MEDICARE, SELFPAY | PROVIDERS: PCP Family Medicine; Visit Provider Anesthesiology Pain Medicine | DX: M54.16 Radiculopathy, lumbar region (principal); M54.9 Dorsalgia, unspecified | CPT/HCPCS: 64483; 64484; J1100; J3490; J9999 ==

== ENCOUNTER → 2025-02-24 09:22 | Outpatient (BNVA) | payer MEDICARE, SELFPAY | PROVIDERS: PCP Family Medicine; Visit Provider Anesthesiology Pain Medicine | DX: M51.16 Intervertebral disc disorders with radiculopathy, lumbar region (principal); M54.9 Dorsalgia, unspecified | CPT/HCPCS: 99214 ==

== ENCOUNTER 2025-02-27 05:00 | Outpatient (RCR) | payer MEDICARE, SELFPAY | END 2025-03-12 12:32 | disposition home or self-care (01) | LOC: MPT 05:00 | PROVIDERS: PCP Family Medicine; Visit Provider Anesthesiology Pain Medicine | DX: M54.16 Radiculopathy, lumbar region (principal) | CPT/HCPCS: 97110; G0283 ==

== ENCOUNTER → 2025-03-03 15:09 | Outpatient (BNVA) | payer MEDICARE, SELFPAY | PROVIDERS: PCP Family Medicine; Visit Provider Orthopaedic Surgery | DX: M51.16 Intervertebral disc disorders with radiculopathy, lumbar region (principal); G89.29 Other chronic pain | CPT/HCPCS: 72110; 99214 ==

== ENCOUNTER 2025-03-17 13:18 | Oncology outpatient (recurring) (ONCR) | payer MEDICARE, SELFPAY ==
[2025-03-17 13:34] LABS: Hematocrit 35.6 % (36-47); Hemoglobin 11.40 g/dL (11.27-16.99); Mean Corpuscular HGB Conc 32.0 g/dL (30-55); Mean Corpuscular Hemoglobin 28.4 pg (27-33); Mean Corpuscular Volume 88.8 fl (85-98); Nucleated Red Blood Cells % 0 %; Platelet Count 307 10^3/cmm (157-399); Red Blood Count 4.01 10^6/uL (3.85-5.65); White Blood Count 9.25 10^3/uL (3.29-11.43)
[2025-03-17 13:49] LABS: Alanine Aminotransferase 12 U/L (0-33); Albumin Level 4.2 g/dL (3.5-5.2); Alkaline Phosphatase 121 U/L (35-105); Anion Gap 13.1 (5-19); Aspartate Amino Transferase 12 U/L (0-32); Blood Urea Nitrogen 10 mg/dL (8-23); Calcium 9.7 mg/dL (8.5-10.5); Carbon Dioxide 28 mmol/L (22-29); Chloride 98 mmol/L (98-107); Globulin 3.1 g/dL (1.3-4.6); Glucose 126 mg/dL (65-115); Osmolality Calculated 281 mOsm/kg (285-295); Potassium 4.1 mmol/L (3.5-5.1); Sodium 135 mmol/L (136-145); Total Protein 7.3 g/dL (6.6-8.7)
== END 2025-03-29 23:59 | disposition home or self-care (01) ==
PROVIDERS: PCP Family Medicine; Visit Provider Internal Medicine Medical Oncology
DX: C50.912 Malignant neoplasm of unspecified site of left female breast (principal); Z17.0 Estrogen receptor positive status [ER+]; Z92.3 Personal history of irradiation; Z87.891 Personal history of nicotine dependence; Z79.899 Other long term (current) drug therapy
CPT/HCPCS: 36415; 80053; 85025; 99214